=== PATIENT | male | born 1965 | race African-American/Black ===

== ENCOUNTER 2016-11-15 20:31 | Inpatient (IN) | payer MEDICAID ==
[~2016-11-15] VITALS: Ht 203.2 cm; Wt 77.1 kg
[~2016-11-15 20:31] MED LIST: ASPI-1079 PO; BACL20TA PO; DIPH25CA83 PO; Sodium Bicarbonate PO
[2016-11-15 22:08] LABS: BASOPHILS % 0.8 % (0.0-2.0); EOSINOPHILS % 1.1 % (0.0-5.0); HEMATOCRIT. 31.9 % (42.0-52.0); HEMOGLOBIN. 10.8 g/dL (14.0-18.0); LYMPHOCYTES % 16.2 % (20.0-50.0); MEAN CORPUSCULAR HEMOGLOBIN 26.9 pg (28.0-32.0); MEAN CORPUSCULAR VOLUME 79.4 fL (80.0-94.0); NEUTROPHILS % 74.9 % (40.0-76.0); PLATELET 269 x1000/uL (130-400); RED BLOOD CELL COUNT 4.02 mill/uL (4.7-6.1); RED CELL DISTRIBUTION WIDTH 13.9 % (11.6-14.6)
[2016-11-15 22:14] LABS: CHLORIDE 106 mEq/L (98-107)
[2016-11-15] MEDS ORDERED: VANCOMYCIN 1 G PREMIX 200 ML IV SCH (22:15)
[2016-11-15] MEDS ORDERED: MORPHINE SULFATE 4 MG/ML CPJ (NOT FOR IM USE) IV ONE (22:15)
[2016-11-15] MEDS ORDERED: ONDANSETRON HCL 4MG/2ML VIAL IV ONE (22:15)
[2016-11-15] MEDS ORDERED: SODIUM CHLORIDE 0.9% 1000ML BAG (SEPSIS BOLUS) IV ONE (22:15)
[2016-11-15] MEDS ORDERED: PIPERACILLIN/TAZ 3.375G PREMIX 50 ML IV ONE (22:15)
[2016-11-15 22:17] LABS: INR 1.2; PARTIAL THROMBOPLASTIN TIME 31.5 sec (23.4-31.0); PROTHROMBIN TIME 12.2 sec (9.4-11.6)
[2016-11-15 22:25] LABS: CARBON DIOXIDE 27 mEq/L (21-32); CREATINE KINASE 46 IU/L (39-308); CREATINE KINASE MB FRACTION < 0.5 ng/mL (0.5-3.6); TROPONIN I < 0.02 ng/mL (0.00-0.04)
[2016-11-15] MEDS ORDERED: POTASSIUM CHLORIDE 20MEQ/PACKET GT ONE (23:00)
[2016-11-16] MEDS ORDERED: POTASSIUM CHLORIDE 20MEQ TABLET SR PO SCH (00:30)
[2016-11-16] MEDS ORDERED: POTASSIUM CHLORIDE 20MEQ TABLET SR PO ONE (00:30)
[2016-11-16 03:10] VITALS: BP 111/87
[2016-11-16 04:00] VITALS: BP 114/77
[2016-11-16] MEDS ORDERED: MORPHINE SULFATE 4 MG/ML CPJ (NOT FOR IM USE) IV PRN (05:15)
[2016-11-16] MEDS ORDERED: VANCOMYCIN 1 G PREMIX 200 ML IV SCH ×2 (06:00)
[2016-11-16] MEDS ORDERED: DIPH25CA46 PO (06:09)
[2016-11-16] MEDS ORDERED: OMEP20CA10 PO (06:09)
[2016-11-16] MEDS ORDERED: MULT1TAB63 PO (06:09)
[2016-11-16] MEDS: SODIUM CHLORIDE 0.9% 1,000 ML IV SCH (06:39)
[2016-11-16 08:00] VITALS: BP 98/65
[2016-11-16] MEDS: PIPERACILLIN/TAZ 3.375G PREMIX 50 ML IV SCH ×3 (10:13→22:13)
[2016-11-16 10:31] LABS: HEMATOCRIT 31.8 % (42.0-52.0); HEMOGLOBIN 10.9 g/dL (14.0-18.0); MEAN CORPUSCULAR HEMOGLOBIN 27.4 pg (28.0-32.0); MEAN CORPUSCULAR VOLUME 80.3 fL (80.0-94.0); PLATELET 248 x1000/uL (130-400); RED BLOOD CELL COUNT 3.96 mill/uL (4.7-6.1); RED CELL DISTRIBUTION WIDTH 14.1 % (11.6-14.6)
[2016-11-16 11:10] LABS: CARBON DIOXIDE 26 mEq/L (21-32); CHLORIDE 107 mEq/L (98-107); HDL CHOLESTEROL 32 mg/dL (40-59); LDL CHOLESTEROL 71 mg/dL (5-100)
[2016-11-16 12:00] VITALS: BP 95/63
[2016-11-16] MEDS ORDERED: SODIUM HYPOCHLORITE 0.125% 473ML SOLUTION TOP PRN (15:00)
[2016-11-16 16:00] VITALS: BP 118/82
[2016-11-16] MEDS: CHOLECALCIFEROL (D3) 1000 UNIT TABLET PO SCH (16:00)
[2016-11-16 20:00] VITALS: BP 105/64
[2016-11-16] MEDS: VANCOMYCIN 1 G PREMIX 200 ML IV SCH (20:28)
[2016-11-17] VITALS: BP 108/74
[2016-11-17 04:00] VITALS: BP 101/67
[2016-11-17] MEDS: VANCOMYCIN 1 G PREMIX 200 ML IV SCH (05:06)
[2016-11-17 06:25] LABS: BASOPHILS % 0.7 % (0.0-2.0); EOSINOPHILS % 3.1 % (0.0-5.0); HEMOGLOBIN. 9.8 g/dL (14.0-18.0); LYMPHOCYTES % 17.2 % (20.0-50.0); MEAN CORPUSCULAR HEMOGLOBIN 27.5 pg (28.0-32.0); MEAN CORPUSCULAR VOLUME 78.8 fL (80.0-94.0); MEAN PLATELET VOLUME 8.3 fl (7.4-10.4); MONOCYTES % 7.5 % (2.0-8.0); NEUTROPHILS % 71.5 % (40.0-76.0); PLATELET 243 x1000/uL (130-400); RED BLOOD CELL COUNT 3.55 mill/uL (4.7-6.1); RED CELL DISTRIBUTION WIDTH 14.3 % (11.6-14.6)
[2016-11-17 06:52] LABS: CARBON DIOXIDE 27 mEq/L (21-32); CHLORIDE 107 mEq/L (98-107)
[2016-11-17] MEDS: PIPERACILLIN/TAZ 3.375G PREMIX 50 ML IV SCH (07:10)
[2016-11-17] MEDS: SODIUM CHLORIDE 0.9% 1,000 ML IV SCH ×2 (07:55→20:53)
[2016-11-17 08:00] VITALS: BP 101/67
[2016-11-17 08:08] LABS: CARBON DIOXIDE 25 mEq/L (21-32); CHLORIDE 107 mEq/L (98-107); VANCOMYCIN TROUGH 17.9 ug/mL (5.0-10.0)
[2016-11-17] MEDS: CHOLECALCIFEROL (D3) 1000 UNIT TABLET PO SCH (09:12)
[2016-11-17 12:00] VITALS: BP 110/78
[2016-11-17] MEDS: CLINDAMYCIN 600 MG in DEXTROSE 5% WATER 50 ML IV SCH (14:51)
[2016-11-17 16:00] VITALS: BP 95/64
[2016-11-17] MEDS ORDERED: VANCOMYCIN 1 G PREMIX 200 ML IV SCH (17:00)
[2016-11-17 20:00] VITALS: BP 104/66
[2016-11-18] VITALS: BP 108/73
[2016-11-18] MEDS: CLINDAMYCIN 600 MG in DEXTROSE 5% WATER 50 ML IV SCH ×3 (02:42→15:26)
[2016-11-18] MEDS: SODIUM CHLORIDE 0.9% 1,000 ML IV SCH (02:42)
[2016-11-18 04:00] VITALS: BP 101/68
[2016-11-18] MEDS ORDERED: BUPIVACAINE HCL 0.5% (5MG/ML) 50ML ONE (07:15)
[2016-11-18] MEDS ORDERED: NORMAL SALINE 0.9% 10 ML SYR ONE (07:15)
[2016-11-18] MEDS ORDERED: GENTAMICIN SULF 40MG/ML 2ML VIAL ONE (07:15)
[2016-11-18] MEDS ORDERED: BACITRACIN 50,000 UNITS/VIAL ONE (07:15)
[2016-11-18] MEDS ORDERED: FENTANYL CITRATE/PF 50MCG/ML 2ML VIAL ONE (07:34)
[2016-11-18] MEDS ORDERED: MIDAZOLAM HCL 2 MG/2 ML VIAL ONE (07:34)
[2016-11-18] MEDS ORDERED: LIDOCAINE HCL 1% 20ML VIAL (Pyxis) INJ ONE (07:54)
[2016-11-18] MEDS ORDERED: PROPOFOL 200MG/20ML VIAL IV ONE (07:54)
[2016-11-18] MEDS ORDERED: DEXAMETHASONE 4MG/ML 1ML VIAL ONE (07:54)
[2016-11-18] MEDS ORDERED: BACITRACIN ZINC 15GM TUBE TOP ONE (08:02)
[2016-11-18] MEDS ORDERED: ONDANSETRON HCL 4MG/2ML VIAL IV PRN (08:15)
[2016-11-18] MEDS ORDERED: LABETALOL HCL 20MG/4ML CARPUJECT IV PRN (08:15)
[2016-11-18] MEDS ORDERED: HYDROMORPHONE HCL/PF 2MG/ML CPJ IV PRN (08:15)
[2016-11-18] MEDS ORDERED: MEPERIDINE HCL/PF 25MG/ML CPJ IV PRN (08:15)
[2016-11-18 10:00] VITALS: BP 110/75
[2016-11-18] MEDS: CHOLECALCIFEROL (D3) 1000 UNIT TABLET PO SCH (10:20)
[2016-11-18 12:00] VITALS: BP 106/75
[2016-11-18 16:00] VITALS: BP 113/78
[2016-11-18] MEDS: IBUPROFEN 600MG TABLET PO PRN (18:07)
[2016-11-18 20:00] VITALS: BP 119/77
[2016-11-19] VITALS: BP 101/65
[2016-11-19] MEDS: SODIUM CHLORIDE 0.9% 1,000 ML IV SCH ×2 (01:21→15:58)
[2016-11-19] MEDS: IBUPROFEN 600MG TABLET PO PRN ×3 (01:45→20:42)
[2016-11-19] MEDS: CLINDAMYCIN 600 MG in DEXTROSE 5% WATER 50 ML IV SCH ×4 (03:05→23:43)
[2016-11-19 08:00] VITALS: BP 108/80
[2016-11-19] MEDS: CHOLECALCIFEROL (D3) 1000 UNIT TABLET PO SCH (09:49)
[2016-11-19] MEDS ORDERED: CLIN300C3 PO (11:47)
[2016-11-19] MEDS ORDERED: CHOL100022 PO (11:47)
[2016-11-19 12:00] VITALS: BP 106/70
[2016-11-19 16:00] VITALS: BP 114/68
[2016-11-19 20:00] VITALS: BP 104/76
[2016-11-20] VITALS: BP 103/55
[2016-11-20 04:00] VITALS: BP 119/64
[2016-11-20] MEDS: CLINDAMYCIN 600 MG in DEXTROSE 5% WATER 50 ML IV SCH ×3 (06:30→23:00)
[2016-11-20] MEDS: SODIUM CHLORIDE 0.9% 1,000 ML IV SCH (06:32)
[2016-11-20 08:00] VITALS: BP 103/72
[2016-11-20] MEDS: CHOLECALCIFEROL (D3) 1000 UNIT TABLET PO SCH (09:01)
[2016-11-20 12:00] VITALS: BP 100/65
[2016-11-20 16:00] VITALS: BP 113/76
[2016-11-20 20:00] VITALS: BP 115/72
[2016-11-21] VITALS (8 sets, daily range): BP systolic 110–130; BP diastolic 67–88
[2016-11-21] MEDS: SODIUM CHLORIDE 0.9% 1,000 ML IV SCH ×2 (05:15→18:16)
[2016-11-21 06:55] LABS: HEMATOCRIT 29.5 % (42.0-52.0); HEMOGLOBIN 10.2 g/dL (14.0-18.0); MEAN CORPUSCULAR HEMOGLOBIN 27.4 pg (28.0-32.0); MEAN CORPUSCULAR VOLUME 79.4 fL (80.0-94.0); PLATELET 253 x1000/uL (130-400); RED BLOOD CELL COUNT 3.71 mill/uL (4.7-6.1)
[2016-11-21] MEDS: CLINDAMYCIN 600 MG in DEXTROSE 5% WATER 50 ML IV SCH ×2 (07:00→15:00)
[2016-11-21 07:17] LABS: CARBON DIOXIDE 24 mEq/L (21-32); CHLORIDE 108 mEq/L (98-107)
[2016-11-21] MEDS: CHOLECALCIFEROL (D3) 1000 UNIT TABLET PO SCH (08:01)
[2016-11-21] MEDS: IBUPROFEN 600MG TABLET PO PRN (15:54)
== END 2016-11-21 22:00 | disposition home health service (06) | DRG 364 ==
LOC: ER 20:51 → 6EST 23:01 → ENRESERV 23:12
PROVIDERS: ADMIT Internal Medicine; ATTEND Internal Medicine
PROC: 0KBF0ZZ Excision of Right Trunk Muscle, Open Approach (ICD-10-PCS; 2016-11-18)
PROC: 0KBG0ZZ Excision of Left Trunk Muscle, Open Approach (ICD-10-PCS; principal; 2016-11-18 07:30)
DX: L89.104 Pressure ulcer of unspecified part of back, stage 4 (principal); E43 Unspecified severe protein-calorie malnutrition; G35 Multiple sclerosis; E86.0 Dehydration; D64.9 Anemia, unspecified; G89.29 Other chronic pain; Z74.01 Bed confinement status; Z79.899 Other long term (current) drug therapy; Z91.14 Patient's other noncompliance with medication regimen; Z68.1 Body mass index [BMI] 19.9 or less, adult; Z79.82 Long term (current) use of aspirin
CPT/HCPCS: 36415; 80048; 80053; 80061; 80202; 82550; 82553; 83605; 83690; 83880; 84443; 84484; 85025; 85027; 85610; 85730; 87040; 88304; 92610; 93005; 97162; 97166; 99285; A4216; J1100; J1580; J2250; J2270; J2405; J2543; J2704; J3010; J3370; J3490; J7030; J7060

== ENCOUNTER 2019-03-19 10:50 | Inpatient (IN) | payer MEDICAID, MEDICARE ==
[~2019-03-19] VITALS: Ht 175.3 cm; Wt 59.0 kg
[~2019-03-19 10:50] MED LIST changes: +ASCO500C15 PO; +BISA-81 PO; +CLIN300C3 PO; +CLON0.1T PO; +DIPH25CA46 PO; +DOCU-138 PO; +GABA-531 PO; +HYDR2TAB4 PO; +IPRA3AMP9 HHN; +LEVO500T2 PO; +MAG-55 PO; +MULT-1146 PO; +NA P230E RC; +OMEP20CA14 PO; +SENN-170 PO; -Sodium Bicarbonate PO; +TOPUD PO; +TRAM50TA3 PO
[2019-03-19 11:22] LABS: HEMATOCRIT. 36.7 % (42.0-52.0); HEMOGLOBIN. 12.3 g/dL (14.0-18.0); MEAN CORPUSCULAR HEMOGLOBIN 25.7 pg (28.0-32.0); MEAN CORPUSCULAR VOLUME 76.5 fL (80.0-94.0); MEAN PLATELET VOLUME 9.3 fl (7.4-10.4); PLATELET 192 x1000/uL (130-400); RED BLOOD CELL COUNT 4.79 mill/uL (4.7-6.1); RED CELL DISTRIBUTION WIDTH 17.7 % (11.6-14.6)
[2019-03-19 11:30] LABS: CHLORIDE 108 mEq/L (98-107)
[2019-03-19] MEDS ORDERED: SODIUM CHLORIDE 0.9% 1,000 ML IV ONE (11:30)
[2019-03-19 11:34] LABS: ETHANOL BLOOD < 10 mg/dL
[2019-03-19 12:06] LABS: PLATELET ESTIMATE NORMAL
[2019-03-19 13:11] LABS: CLARITY URINE TURBID (CLEAR); COLOR URINE YELLOW (YELLOW); KETONES URINE NEGATIVE (NEGATIVE); LEUKOCYTE ESTERASE URINE 3+ (NEGATIVE); NITRITE URINE POSITIVE (NEGATIVE); OCCULT BLOOD URINE 2+ (NEGATIVE); PROTEIN URINE 1+ (NEGATIVE); SPECIFIC GRAVITY URINE 1.017 (1.005-1.030)
[2019-03-19 13:29] LABS: *COCAINE SCREEN URINE NEGATIVE (NEGATIVE); METHADONE URINE SCREEN NEGATIVE (NEGATIVE); OPIATES URINE SCREEN PRESUMTIVE POSITIVE (NEGATIVE); PHENCYCLIDINE URINE SCREEN NEGATIVE (NEGATIVE)
[2019-03-19 13:30] LABS: *AMPHETAMINES SCREEN URINE NEGATIVE (NEGATIVE); *BARBITURATES SCREEN URINE NEGATIVE (NEGATIVE); *BENZODIAZEPINES SCREEN URINE NEGATIVE (NEGATIVE); CANNABINOID URINE SCREEN NEGATIVE (NEGATIVE)
[2019-03-19] MEDS ORDERED: CEFTRIAXONE 1 G PREMIX 50 ML IV ONE (13:45)
[2019-03-19 16:00] VITALS: BP 95/55
[2019-03-19] MEDS ORDERED: GABA-533 GT (17:15)
[2019-03-19] MEDS ORDERED: ONDA4TAB5 GT (17:24)
[2019-03-19] MEDS ORDERED: HYDR-3281 GT (17:24)
[2019-03-19] MEDS ORDERED: CRAN1CAP10 GT (17:24)
[2019-03-19] MEDS ORDERED: ACETAMINOPHEN 650MG/20.3ML UDC GT PRN (19:00)
[2019-03-19 20:00] VITALS: BP 100/55
[2019-03-19] MEDS ORDERED: MEROPENEM 1,000 MG in SODIUM CHLORIDE 0.9% 100 ML IV NR (20:00)
[2019-03-19] MEDS: ENOXAPARIN 40MG/0.4ML SYR SUBCUT SCH (21:15)
[2019-03-19] MEDS: DEXT 5%/0.45% NACL 1000ML 1,000 ML IV SCH (21:15)
[2019-03-20] VITALS: BP 102/58
[2019-03-20 04:00] VITALS: BP 100/52
[2019-03-20] MEDS: DEXT 5%/0.45% NACL 1000ML 1,000 ML IV SCH ×2 (05:41→15:28)
[2019-03-20 06:43] LABS: HEMATOCRIT. 32.2 % (42.0-52.0); HEMOGLOBIN. 11.1 g/dL (14.0-18.0); MEAN CORPUSCULAR HEMOGLOBIN 26.4 pg (28.0-32.0); MEAN CORPUSCULAR VOLUME 76.5 fL (80.0-94.0); MEAN PLATELET VOLUME 9.9 fl (7.4-10.4); PLATELET 164 x1000/uL (130-400); RED BLOOD CELL COUNT 4.21 mill/uL (4.7-6.1); RED CELL DISTRIBUTION WIDTH 17.7 % (11.6-14.6)
[2019-03-20 06:59] LABS: CHLORIDE 111 mEq/L (98-107)
[2019-03-20 07:05] LABS: PHOSPHORUS 1.9 mg/dL (2.5-4.9)
[2019-03-20 08:00] VITALS: BP 114/63
[2019-03-20] MEDS: MEROPENEM 1,000 MG in SODIUM CHLORIDE 0.9% 100 ML IV SCH ×2 (08:56→20:46)
[2019-03-20] MEDS: FAMOTIDINE 20MG/2ML VIAL IV SCH ×2 (08:56→20:45)
[2019-03-20] MEDS: ENOXAPARIN 40MG/0.4ML SYR SUBCUT SCH (08:57)
[2019-03-20 12:00] VITALS: BP 122/68
[2019-03-20] MEDS ORDERED: POTASSIUM CHLORIDE 20MEQ/PACKET GT NR (14:30)
[2019-03-20] MEDS ORDERED: POTASSIUM PHOS,M-BASIC-D-BASIC 30 MMOL in DEXT 5% WATER 500 ML IV NR (15:30)
[2019-03-20 16:00] VITALS: BP 124/70
[2019-03-20 18:12] LABS: PLATELET ESTIMATE NORMAL
[2019-03-20 20:00] VITALS: BP 122/74
[2019-03-21] VITALS: BP 127/79
[2019-03-21 04:00] VITALS: BP 128/84
[2019-03-21] MEDS: DEXT 5%/0.45% NACL 1000ML 1,000 ML IV SCH ×3 (04:06→20:30)
[2019-03-21 07:42] LABS: BASOPHILS % 0.4 % (0.0-2.0); EOSINOPHILS % 0.4 % (0.0-5.0); HEMATOCRIT. 33.8 % (42.0-52.0); HEMOGLOBIN. 11.5 g/dL (14.0-18.0); MEAN CORPUSCULAR VOLUME 76.2 fL (80.0-94.0); MEAN PLATELET VOLUME 9.8 fl (7.4-10.4); NEUTROPHILS % 81.2 % (40.0-76.0); PLATELET 179 x1000/uL (130-400); RED BLOOD CELL COUNT 4.43 mill/uL (4.7-6.1); RED CELL DISTRIBUTION WIDTH 17.1 % (11.6-14.6)
[2019-03-21 08:00] VITALS: BP 125/70
[2019-03-21 08:17] LABS: CHLORIDE 110 mEq/L (98-107)
[2019-03-21 08:23] LABS: PHOSPHORUS 2.3 mg/dL (2.5-4.9)
[2019-03-21] MEDS: MEROPENEM 1,000 MG in SODIUM CHLORIDE 0.9% 100 ML IV SCH ×2 (08:51→22:23)
[2019-03-21] MEDS: FAMOTIDINE 20MG/2ML VIAL IV SCH ×2 (08:51→20:29)
[2019-03-21] MEDS: ENOXAPARIN 40MG/0.4ML SYR SUBCUT SCH (08:52)
[2019-03-21] MEDS ORDERED: POTASSIUM CHLORIDE 20MEQ/PACKET GT NR (09:00)
[2019-03-21] MEDS ORDERED: POTASSIUM PHOS,M-BASIC-D-BASIC 20 MMOL in DEXT 5% WATER 243.3333 ML IV NR (10:30)
[2019-03-21 12:00] VITALS: BP 119/78
[2019-03-21 16:00] VITALS: BP_SYST 127; BP_SYST 175; BP_DIAS 75
[2019-03-21 20:00] VITALS: BP 123/65
[2019-03-22] VITALS: BP 120/84
[2019-03-22 04:00] VITALS: BP 117/73
[2019-03-22] MEDS: DEXT 5%/0.45% NACL 1000ML 1,000 ML IV SCH (06:10)
[2019-03-22 06:36] LABS: BASOPHILS % 0.4 % (0.0-2.0); EOSINOPHILS % 1.5 % (0.0-5.0); HEMATOCRIT. 32.2 % (42.0-52.0); HEMOGLOBIN. 11.4 g/dL (14.0-18.0); LYMPHOCYTES % 16.9 % (20.0-50.0); MEAN CORPUSCULAR HEMOGLOBIN 26.7 pg (28.0-32.0); MEAN CORPUSCULAR VOLUME 75.8 fL (80.0-94.0); MEAN PLATELET VOLUME 9.6 fl (7.4-10.4); MONOCYTES % 8.9 % (2.0-8.0); NEUTROPHILS % 72.3 % (40.0-76.0); PLATELET 192 x1000/uL (130-400); RED BLOOD CELL COUNT 4.26 mill/uL (4.7-6.1); RED CELL DISTRIBUTION WIDTH 17.4 % (11.6-14.6)
[2019-03-22 08:00] VITALS: BP 129/86
[2019-03-22] MEDS: MEROPENEM 1,000 MG in SODIUM CHLORIDE 0.9% 100 ML IV SCH (09:18)
[2019-03-22] MEDS: FAMOTIDINE 20MG/2ML VIAL IV SCH (09:18)
[2019-03-22] MEDS: ENOXAPARIN 40MG/0.4ML SYR SUBCUT SCH (09:19)
[2019-03-22 12:00] VITALS: BP 131/81
[2019-03-22 16:00] VITALS: BP 127/75
[2019-03-22 19:05] VITALS: BP 127/75
[2019-03-22] MEDS ORDERED: SULFAMETHOXAZOLE/TRIMETHOPRIM 800/160MG TABLET GT SCH (21:00)
[2019-04-23] MEDS ORDERED: CEPH750C9 MT (17:14)
== END 2019-03-22 20:11 | DRG 720 ==
LOC: ER 10:50 → 5WST 14:00 → EDBEDREQ 14:23 → EDBEDREQSVC 14:23 → ENRESERV 14:44 → 5WST 17:14
PROVIDERS: ADMIT Internal Medicine; ATTEND Internal Medicine
DX: A41.50 Gram-negative sepsis, unspecified (principal); G93.41 Metabolic encephalopathy; L89.894 Pressure ulcer of other site, stage 4; I11.0 Hypertensive heart disease with heart failure; I50.9 Heart failure, unspecified; E83.39 Other disorders of phosphorus metabolism; E83.51 Hypocalcemia; E87.6 Hypokalemia; G35 Multiple sclerosis; N39.0 Urinary tract infection, site not specified; B96.89 Other specified bacterial agents as the cause of diseases classified elsewhere; M24.50 Contracture, unspecified joint; K21.9 Gastro-esophageal reflux disease without esophagitis; D64.9 Anemia, unspecified; N31.9 Neuromuscular dysfunction of bladder, unspecified; Z22.322 Carrier or suspected carrier of Methicillin resistant Staphylococcus aureus; Z93.1 Gastrostomy status; Z79.82 Long term (current) use of aspirin; Z79.899 Other long term (current) drug therapy
CPT/HCPCS: 36415; 71045; 80048; 80053; 80305; 80320; 81003; 83605; 83735; 84100; 84134; 85025; 87077; 87186; 93005; 99285; J0696; J1650; J2185; J3490; J7030; J7050; J7060; G0480

== ENCOUNTER 2020-04-14 10:07 | Inpatient (IN) | payer MEDICAID ==
[~2020-04-14] VITALS: Ht 182.9 cm; Wt 50.3 kg
[~2020-04-14 10:07] MED LIST changes: -ASPI-1079 PO; -BACL20TA PO; -BISA-81 PO; -CLIN300C3 PO; -CLON0.1T PO; -DIPH25CA46 PO; -DIPH25CA83 PO; -DOCU-138 PO; -GABA-531 PO; -HYDR2TAB4 PO; -IPRA3AMP9 HHN; -LEVO500T2 PO; -MAG-55 PO; -NA P230E RC; -SENN-170 PO; -TOPUD PO; -TRAM50TA3 PO
[2020-04-14] MEDS ORDERED: SODIUM CHLORIDE 0.9% 1,000 ML IV ONE (11:30)
[2020-04-14 12:02] LABS: HEMATOCRIT. 29.1 % (42.0-52.0); HEMOGLOBIN. 9.8 g/dL (14.0-18.0); MEAN CORPUSCULAR HEMOGLOBIN 23.2 pg (28.0-32.0); MEAN CORPUSCULAR VOLUME 69.1 fL (80.0-94.0); PLATELET 490 x1000/uL (130-400); RED BLOOD CELL COUNT 4.21 mill/uL (4.7-6.1); RED CELL DISTRIBUTION WIDTH 20.8 % (11.6-14.6)
[2020-04-14 12:05] LABS: CHLORIDE 97 mEq/L (98-107)
[2020-04-14 12:09] LABS: INR 1.2; PROTHROMBIN TIME 12.3 sec (9.6-11.0)
[2020-04-14 12:21] LABS: PLATELET ESTIMATE INCREASED
[2020-04-14] MEDS ORDERED: VANCOMYCIN 1 G PREMIX 200 ML IV NR (12:30)
[2020-04-14] MEDS ORDERED: PIPERACILLIN/TAZOBACTAM 3.375GM/50ML PREMIX IV ONE (12:30)
[2020-04-14] MEDS: PIPERACILLIN/TAZ 3.375G PREMIX 50 ML IV NR ×2 (12:41→13:18)
[2020-04-14] MEDS ORDERED: ASPIRIN 325MG EC TABLET PO ONE (12:45)
[2020-04-14] MEDS ORDERED: ASPIRIN 81MG TABLET PO ONE (13:30)
[2020-04-14] MEDS ORDERED: ONDANSETRON HCL 4MG/2ML INJ IV PRN (16:30)
[2020-04-14] MEDS ORDERED: TRAZODONE HCL 50MG TABLET PO PRN (16:30)
[2020-04-14] MEDS ORDERED: CEFTRIAXONE 1 G PREMIX 50 ML IV SCH (17:00)
[2020-04-14 17:41] VITALS: BP 102/67
[2020-04-14 17:48] VITALS: BP 104/67
[2020-04-14] MEDS ORDERED: ZINC220T4 MT (18:51)
[2020-04-14] MEDS ORDERED: FE300LUD MT (18:51)
[2020-04-14] MEDS ORDERED: TOPUD GT (18:51)
[2020-04-14] MEDS ORDERED: MULT-230 MT (18:51)
[2020-04-14] MEDS ORDERED: FAMO20TA8 MT (18:51)
[2020-04-14] MEDS ORDERED: DOCU250C14 GT (18:51)
[2020-04-14] MEDS ORDERED: ASCO500C18 PO (18:51)
[2020-04-14] MEDS ORDERED: ALBU05 NEB (18:51)
[2020-04-14] MEDS ORDERED: ONDA4TAB5 MT (18:51)
[2020-04-14] MEDS ORDERED: GABA-533 MT (18:51)
[2020-04-14] MEDS ORDERED: LOV40 SQ (18:51)
[2020-04-14 20:00] VITALS: BP 100/63
[2020-04-14] MEDS ORDERED: CEFTRIAXONE 1,000 MG in DEXTROSE 5% WATER 50 ML IV SCH (20:00)
[2020-04-14] MEDS: AZITHROMYCIN 500 MG in DEXT 5% WATER 250 ML IV SCH (20:12)
[2020-04-14] MEDS: HEPARIN 5000 UNITS/ML VIAL SUBCUT SCH (20:18)
[2020-04-15] VITALS (7 sets, daily range): BP systolic 100–129; BP diastolic 63–88
[2020-04-15] MEDS: HEPARIN 5000 UNITS/ML VIAL SUBCUT SCH (08:36)
[2020-04-15 09:12] LABS: HEMATOCRIT. 25.7 % (42.0-52.0); HEMOGLOBIN. 8.5 g/dL (14.0-18.0); MEAN CORPUSCULAR HEMOGLOBIN 22.7 pg (28.0-32.0); MEAN CORPUSCULAR VOLUME 68.2 fL (80.0-94.0); PLATELET 431 x1000/uL (130-400); RED BLOOD CELL COUNT 3.77 mill/uL (4.7-6.1); RED CELL DISTRIBUTION WIDTH 21.6 % (11.6-14.6)
[2020-04-15 09:23] LABS: CHLORIDE 99 mEq/L (98-107)
[2020-04-15] MEDS: CEFEPIME 1,000 MG in DEXTROSE 5% WATER 50 ML IV SCH (16:31)
[2020-04-15 17:00] LABS: CLARITY URINE TURBID (CLEAR); COLOR URINE DARK YELLOW (YELLOW); KETONES URINE NEGATIVE (NEGATIVE); LEUKOCYTE ESTERASE URINE 3+ (NEGATIVE); NITRITE URINE POSITIVE (NEGATIVE); OCCULT BLOOD URINE 2+ (NEGATIVE); PH URINE 7.5 (4.5-8.0); PROTEIN URINE 1+ (NEGATIVE); SPECIFIC GRAVITY URINE 1.025 (1.005-1.030)
[2020-04-15] MEDS: AZITHROMYCIN 500 MG in DEXT 5% WATER 250 ML IV SCH (22:19)
[2020-04-15 23:15] LABS: PLATELET ESTIMATE INCREASED
[2020-04-16 00:48] VITALS: BP 105/69
[2020-04-16] MEDS: CEFEPIME 1,000 MG in DEXTROSE 5% WATER 50 ML IV SCH ×2 (04:02→16:26)
[2020-04-16] MEDS: ACETAMINOPHEN 325MG TABLET PO PRN ×2 (04:03→20:21)
[2020-04-16 08:00] VITALS: BP 103/68
[2020-04-16] MEDS: ASCORBIC ACID 500 MG TABLET PO SCH (09:34)
[2020-04-16] MEDS: ZINC SULFATE 220 MG ( 50 ) CAPSULE PO SCH (09:34)
[2020-04-16 09:54] LABS: HEMATOCRIT. 25.9 % (42.0-52.0); HEMOGLOBIN. 8.5 g/dL (14.0-18.0); MEAN CORPUSCULAR HEMOGLOBIN 22.6 pg (28.0-32.0); MEAN PLATELET VOLUME 8.2 fl (7.4-10.4); PLATELET 393 x1000/uL (130-400); RED BLOOD CELL COUNT 3.75 mill/uL (4.7-6.1); RED CELL DISTRIBUTION WIDTH 21.2 % (11.6-14.6)
[2020-04-16 10:06] LABS: CHLORIDE 100 mEq/L (98-107)
[2020-04-16 11:15] LABS: PLATELET ESTIMATE NORMAL
[2020-04-16 12:00] VITALS: BP 103/69
[2020-04-16] MEDS: AZITHROMYCIN 500 MG in DEXT 5% WATER 250 ML IV SCH (12:35)
[2020-04-16 16:00] VITALS: BP 102/65
[2020-04-16 20:00] VITALS: BP 121/74
[2020-04-16] MEDS: METOPROLOL TARTRATE 25MG TABLET PO SCH (20:21)
[2020-04-17] VITALS: BP 127/75
[2020-04-17 04:00] VITALS: BP 123/72
[2020-04-17] MEDS: ACETAMINOPHEN 325MG TABLET PO PRN ×2 (04:59→12:13)
[2020-04-17] MEDS: CEFEPIME 1,000 MG in DEXTROSE 5% WATER 50 ML IV SCH (04:59)
[2020-04-17 08:00] VITALS: BP 89/48
[2020-04-17 08:04] LABS: BASOPHILS % 0.8 % (0.0-2.0); EOSINOPHILS % 0.7 % (0.0-5.0); HEMATOCRIT. 25.4 % (42.0-52.0); HEMOGLOBIN. 8.5 g/dL (14.0-18.0); LYMPHOCYTES % 7.1 % (20.0-50.0); MEAN CORPUSCULAR HEMOGLOBIN 22.9 pg (28.0-32.0); MEAN CORPUSCULAR VOLUME 68.8 fL (80.0-94.0); MEAN PLATELET VOLUME 8.2 fl (7.4-10.4); MONOCYTES % 11.2 % (2.0-8.0); NEUTROPHILS % 80.2 % (40.0-76.0); PLATELET 361 x1000/uL (130-400); RED CELL DISTRIBUTION WIDTH 21.6 % (11.6-14.6)
[2020-04-17 08:23] LABS: CHLORIDE 99 mEq/L (98-107)
[2020-04-17] MEDS: METOPROLOL TARTRATE 25MG TABLET PO SCH ×2 (09:00→20:14)
[2020-04-17] MEDS: ZINC SULFATE 220 MG ( 50 ) CAPSULE PO SCH (09:03)
[2020-04-17] MEDS: ASCORBIC ACID 500 MG TABLET PO SCH (09:03)
[2020-04-17] MEDS ORDERED: KCL 20MEQ/100ML PREMIX 100 ML IV SCH (10:30)
[2020-04-17 12:00] VITALS: BP 92/62
[2020-04-17] MEDS: AZITHROMYCIN 500 MG in DEXT 5% WATER 250 ML IV SCH (12:14)
[2020-04-17] MEDS ORDERED: SODIUM CHLORIDE 0.9% 1000ML BAG (SEPSIS BOLUS) IV ONE (13:30)
[2020-04-17] MEDS ORDERED: SODIUM CHLORIDE 0.9% 500 ML IV ONE (14:00)
[2020-04-17] MEDS: MIDODRINE HCL 5MG TABLET PO SCH ×2 (14:08→20:14)
[2020-04-17 16:00] VITALS: BP 84/55
[2020-04-17] MEDS: PIPERACILLIN/TAZOBACTAM 3.375 G in DEXT 5% WATER 100 ML IV SCH ×2 (16:43→23:38)
[2020-04-17 20:00] VITALS: BP 110/65
[2020-04-18] VITALS: BP 110/65
[2020-04-18 04:00] VITALS: BP 142/89
[2020-04-18] MEDS: MIDODRINE HCL 5MG TABLET PO SCH ×3 (04:59→21:27)
[2020-04-18] MEDS: PIPERACILLIN/TAZOBACTAM 3.375 G in DEXT 5% WATER 100 ML IV SCH ×3 (04:59→17:14)
[2020-04-18 05:30] VITALS: BP 130/70
[2020-04-18 07:27] LABS: BASOPHILS % 0.3 % (0.0-2.0); EOSINOPHILS % 0.6 % (0.0-5.0); HEMATOCRIT. 23.4 % (42.0-52.0); HEMOGLOBIN. 7.7 g/dL (14.0-18.0); LYMPHOCYTES % 9.4 % (20.0-50.0); MEAN CORPUSCULAR HEMOGLOBIN 22.8 pg (28.0-32.0); MEAN CORPUSCULAR VOLUME 69.2 fL (80.0-94.0); MEAN PLATELET VOLUME 8.5 fl (7.4-10.4); MONOCYTES % 11.8 % (2.0-8.0); NEUTROPHILS % 77.9 % (40.0-76.0); PLATELET 325 x1000/uL (130-400); RED BLOOD CELL COUNT 3.38 mill/uL (4.7-6.1); RED CELL DISTRIBUTION WIDTH 21.6 % (11.6-14.6)
[2020-04-18 07:28] LABS: CHLORIDE 104 mEq/L (98-107)
[2020-04-18 08:00] VITALS: BP 95/62
[2020-04-18] MEDS: METOPROLOL TARTRATE 25MG TABLET PO SCH ×2 (09:00→21:00)
[2020-04-18] MEDS: ZINC SULFATE 220 MG ( 50 ) CAPSULE PO SCH (09:32)
[2020-04-18] MEDS: ASCORBIC ACID 500 MG TABLET PO SCH (09:32)
[2020-04-18] MEDS: ACETAMINOPHEN 325MG TABLET PO PRN (09:33)
[2020-04-18 12:00] VITALS: BP 95/59
[2020-04-18] MEDS: AZITHROMYCIN 500 MG in DEXT 5% WATER 250 ML IV SCH (14:57)
[2020-04-18 16:00] VITALS: BP 92/63
[2020-04-19] MEDS: PIPERACILLIN/TAZOBACTAM 3.375 G in DEXT 5% WATER 100 ML IV SCH ×5 (00:12→23:30)
[2020-04-19] MEDS: MIDODRINE HCL 5MG TABLET PO SCH ×3 (05:28→21:10)
[2020-04-19 07:12] LABS: BASOPHILS % 0.6 % (0.0-2.0); EOSINOPHILS % 0.6 % (0.0-5.0); HEMATOCRIT. 25.3 % (42.0-52.0); HEMOGLOBIN. 8.4 g/dL (14.0-18.0); LYMPHOCYTES % 7.3 % (20.0-50.0); MEAN CORPUSCULAR HEMOGLOBIN 22.5 pg (28.0-32.0); MEAN PLATELET VOLUME 8.4 fl (7.4-10.4); MONOCYTES % 10.3 % (2.0-8.0); NEUTROPHILS % 81.2 % (40.0-76.0); PLATELET 349 x1000/uL (130-400); RED BLOOD CELL COUNT 3.71 mill/uL (4.7-6.1); RED CELL DISTRIBUTION WIDTH 21.4 % (11.6-14.6)
[2020-04-19 07:59] LABS: CHLORIDE 97 mEq/L (98-107)
[2020-04-19 08:00] VITALS: BP 103/66
[2020-04-19] MEDS: METOPROLOL TARTRATE 25MG TABLET PO SCH ×2 (09:00→20:33)
[2020-04-19] MEDS: ZINC SULFATE 220 MG ( 50 ) CAPSULE PO SCH (09:06)
[2020-04-19] MEDS: ASCORBIC ACID 500 MG TABLET PO SCH (09:06)
[2020-04-19] MEDS: AZITHROMYCIN 500 MG in DEXT 5% WATER 250 ML IV SCH (11:32)
[2020-04-19 12:00] VITALS: BP 140/82
[2020-04-19 16:00] VITALS: BP 97/66
[2020-04-19 20:00] VITALS: BP 108/69
[2020-04-19] MEDS: ACETAMINOPHEN 325MG TABLET PO PRN (21:11)
[2020-04-20] VITALS: BP 115/70
[2020-04-20 04:00] VITALS: BP 105/60
[2020-04-20] MEDS: PIPERACILLIN/TAZOBACTAM 3.375 G in DEXT 5% WATER 100 ML IV SCH ×2 (05:05→12:20)
[2020-04-20] MEDS: MIDODRINE HCL 5MG TABLET PO SCH ×2 (05:14→15:17)
[2020-04-20] MEDS ORDERED: LIDOCAINE HCL 1% 20ML VIAL (Pyxis) INJ ONE (07:55)
[2020-04-20 08:00] VITALS: BP 95/62
[2020-04-20] MEDS: METOPROLOL TARTRATE 25MG TABLET PO SCH (09:00)
[2020-04-20] MEDS: ZINC SULFATE 220 MG ( 50 ) CAPSULE PO SCH (10:11)
[2020-04-20] MEDS: ASCORBIC ACID 500 MG TABLET PO SCH (10:11)
[2020-04-20 12:00] VITALS: BP 110/60
[2020-04-20 14:53] VITALS: BP 98/63
== END 2020-04-20 16:15 | DRG 720 ==
LOC: ER 10:19 → 7WST 14:23 → EDBEDREQ 14:26 → EDBEDREQSVC 14:52 → ENRESERV 15:09 → CANRESERV 15:09 → ENRESERV 16:09 → 8WST 04-15 00:20
PROVIDERS: ADMIT Family Medicine Adult Medicine; ATTEND Family Medicine Adult Medicine
DX: A41.50 Gram-negative sepsis, unspecified (principal); G82.50 Quadriplegia, unspecified; J90 Pleural effusion, not elsewhere classified; E43 Unspecified severe protein-calorie malnutrition; D64.9 Anemia, unspecified; E87.1 Hypo-osmolality and hyponatremia; E87.8 Other disorders of electrolyte and fluid balance, not elsewhere classified; E78.5 Hyperlipidemia, unspecified; I10 Essential (primary) hypertension; I27.20 Pulmonary hypertension, unspecified; J18.9 Pneumonia, unspecified organism; J45.909 Unspecified asthma, uncomplicated; N39.0 Urinary tract infection, site not specified; R13.10 Dysphagia, unspecified; F20.9 Schizophrenia, unspecified; Z20.822 Contact with and (suspected) exposure to COVID-19; Z86.16 Personal history of COVID-19; E78.00 Pure hypercholesterolemia, unspecified; F99 Mental disorder, not otherwise specified; L89.894 Pressure ulcer of other site, stage 4; Z93.1 Gastrostomy status; Z87.440 Personal history of urinary (tract) infections; Z79.1 Long term (current) use of non-steroidal anti-inflammatories (NSAID); Z68.1 Body mass index [BMI] 19.9 or less, adult; Z79.899 Other long term (current) drug therapy
CPT/HCPCS: 36415; 71045; 80053; 81003; 83605; 83735; 84134; 84145; 84484; 85025; 87077; 87186; 93005; 93306; 96365; 99291; J0456; J0692; J0696; J1644; J2543; J3370; J3480; J3490; J7030; J7040; J7060; U0003; A4315

== ENCOUNTER 2020-04-22 10:49 | Inpatient (IN) | payer MEDICAID ==
[2020-04-22] VITALS: BP 106/63
[~2020-04-22] VITALS: Ht 172.7 cm; Wt 47.2 kg
[~2020-04-22 10:49] MED LIST changes: +ALBU05 NEB; +ASCO500C18 PO; +DOCU250C14 GT; +FAMO20TA8 MT; +FE300LUD MT; +GABA-533 MT; +LOV40 SQ; +MULT-230 MT; +ONDA4TAB5 MT; +TOPUD GT; +ZINC220T4 MT
[2020-04-22] MEDS ORDERED: SODIUM CHLORIDE 0.9% 1000ML BAG (SEPSIS BOLUS) IV ONE (11:15)
[2020-04-22 12:19] LABS: BASOPHILS % 0.5 % (0.0-2.0); EOSINOPHILS % 0.5 % (0.0-5.0); HEMATOCRIT. 26.4 % (42.0-52.0); HEMOGLOBIN. 8.5 g/dL (14.0-18.0); LYMPHOCYTES % 10.4 % (20.0-50.0); MEAN CORPUSCULAR HEMOGLOBIN 22.2 pg (28.0-32.0); MEAN CORPUSCULAR VOLUME 68.9 fL (80.0-94.0); MEAN PLATELET VOLUME 8.3 fl (7.4-10.4); MONOCYTES % 10.4 % (2.0-8.0); NEUTROPHILS % 78.2 % (40.0-76.0); PLATELET 328 x1000/uL (130-400); RED BLOOD CELL COUNT 3.83 mill/uL (4.7-6.1); RED CELL DISTRIBUTION WIDTH 21.1 % (11.6-14.6)
[2020-04-22 12:25] LABS: CHLORIDE 100 mEq/L (98-107)
[2020-04-22 12:35] LABS: CREATINE KINASE 24 IU/L (39-308)
[2020-04-22 12:36] LABS: INR 1.2; PROTHROMBIN TIME 12.5 sec (9.6-11.0)
[2020-04-22 12:40] LABS: CLARITY URINE CLEAR (CLEAR); COLOR URINE YELLOW (YELLOW); KETONES URINE NEGATIVE (NEGATIVE); LEUKOCYTE ESTERASE URINE TRACE (NEGATIVE); NITRITE URINE NEGATIVE (NEGATIVE); OCCULT BLOOD URINE NEGATIVE (NEGATIVE); PH URINE 7.5 (4.5-8.0); PROTEIN URINE NEGATIVE (NEGATIVE); SPECIFIC GRAVITY URINE 1.006 (1.005-1.030); UROBILINOGEN URINE 0.2 E.U./dL (0.2-1.0)
[2020-04-22 12:58] LABS: PLATELET ESTIMATE NORMAL
[2020-04-22 13:04] LABS: *COCAINE SCREEN URINE NEGATIVE (NEGATIVE); CANNABINOID URINE SCREEN NEGATIVE (NEGATIVE); METHADONE URINE SCREEN NEGATIVE (NEGATIVE); OPIATES URINE SCREEN NEGATIVE (NEGATIVE); PHENCYCLIDINE URINE SCREEN NEGATIVE (NEGATIVE)
[2020-04-22 13:05] LABS: *AMPHETAMINES SCREEN URINE NEGATIVE (NEGATIVE); *BARBITURATES SCREEN URINE NEGATIVE (NEGATIVE)
[2020-04-22 13:06] LABS: *BENZODIAZEPINES SCREEN URINE NEGATIVE (NEGATIVE)
[2020-04-22] MEDS ORDERED: CEFTRIAXONE 1 G PREMIX 50 ML IV ONE (13:30)
[2020-04-22] MEDS ORDERED: LEVOFLOXACIN 500MG PREMIX 100 ML IV ONE (13:30)
[2020-04-22] MEDS ORDERED: ACETAMINOPHEN 650MG/20.3ML UDC GT PRN (17:15)
[2020-04-22] MEDS ORDERED: DIPHENHYDRAMINE 50MG/ML VIAL IV PRN (17:15)
[2020-04-22] MEDS ORDERED: ONDANSETRON HCL 4MG/2ML INJ IV PRN (17:15)
[2020-04-22] MEDS ORDERED: CLONIDINE 0.1MG TABLET PO PRN (17:15)
[2020-04-22] MEDS: SODIUM CHLORIDE 0.9% 1,000 ML IV SCH (18:04)
[2020-04-22] MEDS ORDERED: PIPERACILLIN/TAZOBACTAM 3.375 G in DEXT 5% WATER 100 ML IV SCH (23:00)
[2020-04-23 01:51] VITALS: BP 106/63
[2020-04-23] MEDS ORDERED: METO25TA6 GT (02:44)
[2020-04-23] MEDS ORDERED: [UNRECOGNIZED DRUG - CODE] IV (02:50)
[2020-04-23] MEDS ORDERED: MIDO5TAB4 MT (02:50)
[2020-04-23] MEDS ORDERED: TRAZ-251 MT (02:50)
[2020-04-23 04:00] VITALS: BP 100/58
[2020-04-23 06:45] LABS: BASOPHILS % 0.6 % (0.0-2.0); EOSINOPHILS % 0.4 % (0.0-5.0); HEMATOCRIT. 23.6 % (42.0-52.0); HEMOGLOBIN. 7.9 g/dL (14.0-18.0); LYMPHOCYTES % 9.2 % (20.0-50.0); MEAN CORPUSCULAR HEMOGLOBIN 22.9 pg (28.0-32.0); MEAN CORPUSCULAR VOLUME 68.2 fL (80.0-94.0); MEAN PLATELET VOLUME 7.8 fl (7.4-10.4); MONOCYTES % 9.8 % (2.0-8.0); PLATELET 322 x1000/uL (130-400); RED BLOOD CELL COUNT 3.45 mill/uL (4.7-6.1); RED CELL DISTRIBUTION WIDTH 20.8 % (11.6-14.6)
[2020-04-23 07:22] LABS: CHLORIDE 106 mEq/L (98-107)
[2020-04-23 08:00] VITALS: BP 109/68
[2020-04-23 12:00] VITALS: BP 103/70
[2020-04-23] MEDS: PIPERACILLIN/TAZOBACTAM 3.375 G in DEXT 5% WATER 100 ML IV SCH ×2 (14:37→21:03)
[2020-04-23] MEDS: SODIUM CHLORIDE 0.9% 1,000 ML IV SCH (14:38)
[2020-04-23] MEDS ORDERED: CEFTRIAXONE 1 G PREMIX 50 ML IV SCH (15:00)
[2020-04-23] MEDS ORDERED: LEVOFLOXACIN 500MG PREMIX 100 ML IV SCH (15:30)
[2020-04-23 16:00] VITALS: BP 99/61
[2020-04-23 20:00] VITALS: BP 101/61
[2020-04-24] VITALS: BP 102/70
[2020-04-24 04:00] VITALS: BP 104/63
[2020-04-24] MEDS: PIPERACILLIN/TAZOBACTAM 3.375 G in DEXT 5% WATER 100 ML IV SCH ×4 (04:51→21:03)
[2020-04-24 07:49] LABS: BASOPHILS % 0.4 % (0.0-2.0); EOSINOPHILS % 0.4 % (0.0-5.0); HEMOGLOBIN. 7.8 g/dL (14.0-18.0); LYMPHOCYTES % 7.7 % (20.0-50.0); MEAN CORPUSCULAR HEMOGLOBIN 22.2 pg (28.0-32.0); MEAN CORPUSCULAR VOLUME 68.5 fL (80.0-94.0); MEAN PLATELET VOLUME 8.1 fl (7.4-10.4); NEUTROPHILS % 81.5 % (40.0-76.0); PLATELET 285 x1000/uL (130-400); RED CELL DISTRIBUTION WIDTH 21.3 % (11.6-14.6)
[2020-04-24 07:58] LABS: CHLORIDE 105 mEq/L (98-107)
[2020-04-24 08:00] VITALS: BP 104/70
[2020-04-24] MEDS: SODIUM CHLORIDE 0.9% 1,000 ML IV SCH (09:44)
[2020-04-24 12:00] VITALS: BP 108/69
[2020-04-24] MEDS ORDERED: POTASSIUM CHLORIDE INJ 40 MEQ in DEXT 5% WATER 250 ML IV SCH (13:00)
[2020-04-24 16:00] VITALS: BP 109/72
[2020-04-24 20:00] VITALS: BP 101/66
[2020-04-25] VITALS: BP 100/70
[2020-04-25] MEDS: PIPERACILLIN/TAZOBACTAM 3.375 G in DEXT 5% WATER 100 ML IV SCH ×4 (03:09→20:01)
[2020-04-25 04:00] VITALS: BP 100/59
[2020-04-25] MEDS: SODIUM CHLORIDE 0.9% 1,000 ML IV SCH (05:00)
[2020-04-25 06:27] LABS: BASOPHILS % 0.4 % (0.0-2.0); EOSINOPHILS % 0.7 % (0.0-5.0); HEMOGLOBIN. 8.2 g/dL (14.0-18.0); LYMPHOCYTES % 9.3 % (20.0-50.0); MEAN CORPUSCULAR HEMOGLOBIN 22.3 pg (28.0-32.0); MEAN CORPUSCULAR VOLUME 68.1 fL (80.0-94.0); MEAN PLATELET VOLUME 7.8 fl (7.4-10.4); MONOCYTES % 9.5 % (2.0-8.0); NEUTROPHILS % 80.1 % (40.0-76.0); PLATELET 283 x1000/uL (130-400); RED BLOOD CELL COUNT 3.67 mill/uL (4.7-6.1); RED CELL DISTRIBUTION WIDTH 21.4 % (11.6-14.6)
[2020-04-25 07:12] LABS: CHLORIDE 102 mEq/L (98-107)
[2020-04-25 08:00] VITALS: BP 110/73
[2020-04-25 12:00] VITALS: BP 109/66
[2020-04-25 16:00] VITALS: BP 112/74
[2020-04-25 20:00] VITALS: BP 106/67
[2020-04-26] VITALS (7 sets, daily range): BP systolic 95–114; BP diastolic 60–69
[2020-04-26] MEDS: SODIUM CHLORIDE 0.9% 1,000 ML IV SCH ×2 (03:02→23:29)
[2020-04-26] MEDS: PIPERACILLIN/TAZOBACTAM 3.375 G in DEXT 5% WATER 100 ML IV SCH ×4 (03:02→20:15)
[2020-04-26 08:39] LABS: BASOPHILS % 0.5 % (0.0-2.0); EOSINOPHILS % 0.9 % (0.0-5.0); HEMATOCRIT. 29.8 % (42.0-52.0); HEMOGLOBIN. 9.6 g/dL (14.0-18.0); LYMPHOCYTES % 7.4 % (20.0-50.0); MEAN CORPUSCULAR HEMOGLOBIN 21.5 pg (28.0-32.0); MEAN CORPUSCULAR VOLUME 67.2 fL (80.0-94.0); MEAN PLATELET VOLUME 8.6 fl (7.4-10.4); MONOCYTES % 12.7 % (2.0-8.0); NEUTROPHILS % 78.5 % (40.0-76.0); PLATELET 261 x1000/uL (130-400); RED BLOOD CELL COUNT 4.44 mill/uL (4.7-6.1); RED CELL DISTRIBUTION WIDTH 21.7 % (11.6-14.6)
[2020-04-26 09:54] LABS: CHLORIDE 100 mEq/L (98-107)
[2020-04-26 23:40] LABS: CLARITY URINE CLEAR (CLEAR); COLOR URINE YELLOW (YELLOW); KETONES URINE NEGATIVE (NEGATIVE); LEUKOCYTE ESTERASE URINE NEGATIVE (NEGATIVE); NITRITE URINE NEGATIVE (NEGATIVE); OCCULT BLOOD URINE TRACE (NEGATIVE); PH URINE 6.5 (4.5-8.0); PROTEIN URINE NEGATIVE (NEGATIVE); SPECIFIC GRAVITY URINE 1.017 (1.005-1.030); UROBILINOGEN URINE 0.2 E.U./dL (0.2-1.0)
[2020-04-27] VITALS: BP 100/70
[2020-04-27] MEDS: PIPERACILLIN/TAZOBACTAM 3.375 G in DEXT 5% WATER 100 ML IV SCH ×3 (03:43→16:51)
[2020-04-27 04:00] VITALS: BP 112/72
[2020-04-27 07:49] LABS: HEMATOCRIT. 26.6 % (42.0-52.0); HEMOGLOBIN. 8.6 g/dL (14.0-18.0); MEAN CORPUSCULAR HEMOGLOBIN 22.2 pg (28.0-32.0); PLATELET 370 x1000/uL (130-400); RED CELL DISTRIBUTION WIDTH 21.6 % (11.6-14.6)
[2020-04-27 08:05] LABS: CHLORIDE 100 mEq/L (98-107)
[2020-04-27 12:00] VITALS: BP 109/65
[2020-04-27 13:39] LABS: PLATELET ESTIMATE NORMAL
[2020-04-27 14:08] VITALS: BP 109/65
== END 2020-04-27 18:10 | DRG 720 ==
LOC: ER 10:49 → 8WST 16:21 → EDBEDREQ 16:23 → EDBEDREQTM 16:23 → ENRESERV 20:56
PROVIDERS: ADMIT Family Medicine Adult Medicine; ATTEND Family Medicine Adult Medicine
DX: A41.9 Sepsis, unspecified organism (principal); E43 Unspecified severe protein-calorie malnutrition; L89.894 Pressure ulcer of other site, stage 4; J94.8 Other specified pleural conditions; D64.9 Anemia, unspecified; E87.1 Hypo-osmolality and hyponatremia; E78.5 Hyperlipidemia, unspecified; F20.9 Schizophrenia, unspecified; I27.20 Pulmonary hypertension, unspecified; N39.0 Urinary tract infection, site not specified; R13.10 Dysphagia, unspecified; L89.896 Pressure-induced deep tissue damage of other site; N28.9 Disorder of kidney and ureter, unspecified; I11.0 Hypertensive heart disease with heart failure; I50.9 Heart failure, unspecified; E78.00 Pure hypercholesterolemia, unspecified; G35 Multiple sclerosis; F99 Mental disorder, not otherwise specified; J44.9 Chronic obstructive pulmonary disease, unspecified; E87.6 Hypokalemia; Z93.1 Gastrostomy status; Z79.1 Long term (current) use of non-steroidal anti-inflammatories (NSAID); Z79.899 Other long term (current) drug therapy; Z68.1 Body mass index [BMI] 19.9 or less, adult; Z82.49 Family history of ischemic heart disease and other diseases of the circulatory system
CPT/HCPCS: 36415; 71045; 80048; 80053; 80305; 81003; 82040; 82550; 83605; 83880; 84134; 84145; 84484; 85025; 87077; 93005; 93970; 99285; J0696; J1956; J2543; J3480; J7030; J7060

== ENCOUNTER 2020-05-15 15:39 | Inpatient (IN) | payer MEDICAID ==
[~2020-05-15] VITALS: Ht 167.6 cm; Wt 49.0 kg
[~2020-05-15 15:39] MED LIST changes: -ASCO500C18 PO; +METO25TA6 GT; +MIDO5TAB4 MT; -MULT-1146 PO; -OMEP20CA14 PO; -ONDA4TAB5 MT; +TRAZ-251 MT; +[UNRECOGNIZED DRUG - CODE] IV
[2020-05-15] MEDS ORDERED: VANCOMYCIN 1 G PREMIX 200 ML IV ONE (16:30)
[2020-05-15] MEDS ORDERED: SODIUM CHLORIDE 0.9% 1000ML BAG (SEPSIS BOLUS) IV ONE (16:30)
[2020-05-15] MEDS ORDERED: PIPERACILLIN/TAZ 3.375G PREMIX 50 ML IV ONE (16:30)
[2020-05-15 16:43] LABS: HEMATOCRIT. 23.3 % (42.0-52.0); HEMOGLOBIN. 7.6 g/dL (14.0-18.0); MEAN CORPUSCULAR HEMOGLOBIN 22.7 pg (28.0-32.0); MEAN CORPUSCULAR VOLUME 69.4 fL (80.0-94.0); MEAN PLATELET VOLUME 8.8 fl (7.4-10.4); PLATELET 214 x1000/uL (130-400); RED BLOOD CELL COUNT 3.36 mill/uL (4.7-6.1); RED CELL DISTRIBUTION WIDTH 22.9 % (11.6-14.6)
[2020-05-15 16:51] LABS: CHLORIDE 107 mEq/L (98-107)
[2020-05-15 16:54] LABS: INR 1.2; PARTIAL THROMBOPLASTIN TIME 31.2 sec (23.4-31.0); PROTHROMBIN TIME 13.1 sec (9.6-11.0)
[2020-05-15 17:36] LABS: PLATELET ESTIMATE NORMAL
[2020-05-15] MEDS ORDERED: NOREPINEPHRINE 8MG/250ML PMX 250 ML IV ONE (18:00)
[2020-05-15] MEDS ORDERED: NOREPINEPHRINE 8 MG in DEXTROSE 5% WATER 250 ML IV NR (18:15)
[2020-05-15] MEDS ORDERED: ONDANSETRON HCL 4MG/2ML INJ IV PRN (18:45)
[2020-05-15 20:04] LABS: CLARITY URINE CLEAR (CLEAR); COLOR URINE YELLOW (YELLOW); KETONES URINE NEGATIVE (NEGATIVE); LEUKOCYTE ESTERASE URINE NEGATIVE (NEGATIVE); NITRITE URINE NEGATIVE (NEGATIVE); OCCULT BLOOD URINE 2+ (NEGATIVE); PH URINE 7.5 (4.5-8.0); PROTEIN URINE NEGATIVE (NEGATIVE); UROBILINOGEN URINE 0.2 E.U./dL (0.2-1.0)
[2020-05-15] MEDS: HEPARIN 5000 UNITS/ML VIAL SUBCUT SCH (22:52)
[2020-05-16] VITALS (45 sets, daily range): BP systolic 91–128; BP diastolic 54–80
[2020-05-16] MEDS ORDERED: PIPERACILLIN/TAZOBACTAM 3.375 G in DEXTROSE 5% WATER 50 ML IV SCH
[2020-05-16] MEDS ORDERED: NOREPINEPHRINE 8MG/250ML PMX 250 ML IV PRN (01:45)
[2020-05-16] MEDS ORDERED: NOREPINEPHRINE 8 MG in DEXTROSE 5% WATER 250 ML IV PRN (02:00)
[2020-05-16] MEDS ORDERED: VANCOMYCIN 1 G PREMIX 200 ML IV SCH (03:00)
[2020-05-16 05:45] LABS: CHLORIDE 107 mEq/L (98-107)
[2020-05-16 05:47] LABS: BASOPHILS % 0.5 % (0.0-2.0); EOSINOPHILS % 0.2 % (0.0-5.0); HEMATOCRIT. 24.1 % (42.0-52.0); HEMOGLOBIN. 7.8 g/dL (14.0-18.0); LYMPHOCYTES % 7.9 % (20.0-50.0); MEAN CORPUSCULAR HEMOGLOBIN 22.1 pg (28.0-32.0); MEAN CORPUSCULAR VOLUME 68.3 fL (80.0-94.0); MONOCYTES % 7.8 % (2.0-8.0); NEUTROPHILS % 83.6 % (40.0-76.0); PLATELET 253 x1000/uL (130-400); RED BLOOD CELL COUNT 3.52 mill/uL (4.7-6.1); RED CELL DISTRIBUTION WIDTH 22.7 % (11.6-14.6)
[2020-05-16] MEDS ORDERED: POTASSIUM CHLORIDE 20MEQ/PACKET PO SCH (07:00)
[2020-05-16] MEDS ORDERED: PNEUMOCOCCAL 23-VAL P-SAC VAC 0.5 ML IM ONE (08:00)
[2020-05-16] MEDS: PIPERACILLIN/TAZOBACTAM 3.375 G in DEXT 5% WATER 100 ML IV SCH ×3 (09:02→20:40)
[2020-05-16] MEDS: HEPARIN 5000 UNITS/ML VIAL SUBCUT SCH (09:03)
[2020-05-16] MEDS ORDERED: LIDOCAINE HCL 1% 20ML VIAL (Pyxis) INJ ONE (10:40)
[2020-05-16 11:29] LABS: PLATELET ESTIMATE NORMAL
[2020-05-16] MEDS: ACETAMINOPHEN 325MG TABLET PO PRN ×2 (11:36→18:06)
[2020-05-16] MEDS: VANCOMYCIN 750 MG PREMIX 150 ML IV SCH ×2 (14:52→22:54)
[2020-05-17] VITALS (22 sets, daily range): BP systolic 105–139; BP diastolic 57–91
[2020-05-17] MEDS: PIPERACILLIN/TAZOBACTAM 3.375 G in DEXT 5% WATER 100 ML IV SCH ×4 (02:12→21:55)
[2020-05-17 05:41] LABS: HEMATOCRIT. 26.5 % (42.0-52.0); HEMOGLOBIN. 8.8 g/dL (14.0-18.0); MEAN CORPUSCULAR HEMOGLOBIN 22.5 pg (28.0-32.0); MEAN CORPUSCULAR VOLUME 67.9 fL (80.0-94.0); MEAN PLATELET VOLUME 9.4 fl (7.4-10.4); PLATELET 263 x1000/uL (130-400); RED CELL DISTRIBUTION WIDTH 23.4 % (11.6-14.6)
[2020-05-17 05:50] LABS: CHLORIDE 104 mEq/L (98-107)
[2020-05-17] MEDS: VANCOMYCIN 750 MG PREMIX 150 ML IV SCH ×3 (06:46→23:55)
[2020-05-17 07:13] LABS: PLATELET ESTIMATE NORMAL
[2020-05-17] MEDS ORDERED: POTASSIUM CHLORIDE 20MEQ/PACKET PO SCH (08:30)
[2020-05-17] MEDS: ACETAMINOPHEN 325MG TABLET PO PRN ×2 (09:43→16:19)
[2020-05-17] MEDS ORDERED: POTASSIUM CHLORIDE INJ 40 MEQ in DEXT 5% WATER 250 ML IV SCH (10:00)
[2020-05-18 00:22] VITALS: BP 123/74
[2020-05-18] MEDS: PIPERACILLIN/TAZOBACTAM 3.375 G in DEXT 5% WATER 100 ML IV SCH ×4 (02:47→21:42)
[2020-05-18 04:00] VITALS: BP 110/77
[2020-05-18] MEDS: VANCOMYCIN 750 MG PREMIX 150 ML IV SCH ×2 (06:34→14:49)
[2020-05-18 07:53] VITALS: BP 118/76
[2020-05-18 09:32] LABS: BASOPHILS % 0.6 % (0.0-2.0); EOSINOPHILS % 1.8 % (0.0-5.0); HEMATOCRIT. 25.3 % (42.0-52.0); HEMOGLOBIN. 8.4 g/dL (14.0-18.0); MEAN CORPUSCULAR HEMOGLOBIN 22.7 pg (28.0-32.0); MEAN CORPUSCULAR VOLUME 68.1 fL (80.0-94.0); MEAN PLATELET VOLUME 9.3 fl (7.4-10.4); MONOCYTES % 8.3 % (2.0-8.0); NEUTROPHILS % 78.3 % (40.0-76.0); PLATELET 250 x1000/uL (130-400); RED BLOOD CELL COUNT 3.71 mill/uL (4.7-6.1); RED CELL DISTRIBUTION WIDTH 23.1 % (11.6-14.6)
[2020-05-18 09:38] LABS: CHLORIDE 106 mEq/L (98-107)
[2020-05-18 11:33] VITALS: BP 109/76
[2020-05-18] MEDS ORDERED: POTASSIUM CHLORIDE 20MEQ/PACKET GT NR (12:15)
[2020-05-18 16:25] VITALS: BP 98/62
[2020-05-18] MEDS ORDERED: DOCUSATE SODIUM 250MG CAPSULE PO SCH (17:00)
[2020-05-18] MEDS: FERROUS SULFATE 325MG TABLET PO SCH (17:08)
[2020-05-18 20:00] VITALS: BP 113/78
[2020-05-18] MEDS: ACETAMINOPHEN 325MG TABLET PO PRN (21:43)
[2020-05-19] VITALS: BP 106/72
[2020-05-19] MEDS: VANCOMYCIN 750 MG PREMIX 150 ML IV SCH ×4 (00:10→23:30)
[2020-05-19 04:00] VITALS: BP 117/71
[2020-05-19 05:49] LABS: CHLORIDE 107 mEq/L (98-107)
[2020-05-19 05:57] LABS: BASOPHILS % 0.8 % (0.0-2.0); EOSINOPHILS % 2.9 % (0.0-5.0); HEMATOCRIT. 27.6 % (42.0-52.0); HEMOGLOBIN. 8.9 g/dL (14.0-18.0); MEAN CORPUSCULAR HEMOGLOBIN 22.6 pg (28.0-32.0); MEAN CORPUSCULAR VOLUME 70.2 fL (80.0-94.0); MEAN PLATELET VOLUME 8.9 fl (7.4-10.4); MONOCYTES % 10.1 % (2.0-8.0); NEUTROPHILS % 72.2 % (40.0-76.0); PLATELET 283 x1000/uL (130-400); RED BLOOD CELL COUNT 3.93 mill/uL (4.7-6.1); RED CELL DISTRIBUTION WIDTH 23.4 % (11.6-14.6)
[2020-05-19] MEDS: PIPERACILLIN/TAZOBACTAM 3.375 G in DEXT 5% WATER 100 ML IV SCH ×4 (06:06→21:08)
[2020-05-19 07:56] VITALS: BP 119/72
[2020-05-19] MEDS: DOCUSATE SODIUM SUGAR FREE 100MG/10ML UDC GT SCH ×2 (08:21→08:22)
[2020-05-19] MEDS: FERROUS SULFATE 325MG TABLET PO SCH ×3 (08:21→16:50)
[2020-05-19 12:00] VITALS: BP 115/78
[2020-05-19 15:46] VITALS: BP 97/59
[2020-05-19 20:00] VITALS: BP 112/77
[2020-05-20] VITALS: BP 112/73
[2020-05-20] MEDS: PIPERACILLIN/TAZOBACTAM 3.375 G in DEXT 5% WATER 100 ML IV SCH ×3 (02:23→14:38)
[2020-05-20 04:00] VITALS: BP 106/69
[2020-05-20 05:58] LABS: CHLORIDE 105 mEq/L (98-107)
[2020-05-20] MEDS: ACETAMINOPHEN 325MG TABLET PO PRN ×2 (06:15→20:55)
[2020-05-20] MEDS: VANCOMYCIN 750 MG PREMIX 150 ML IV SCH ×3 (06:15→23:52)
[2020-05-20 06:16] LABS: BASOPHILS % 0.8 % (0.0-2.0); EOSINOPHILS % 4.3 % (0.0-5.0); HEMATOCRIT. 27.1 % (42.0-52.0); HEMOGLOBIN. 8.8 g/dL (14.0-18.0); LYMPHOCYTES % 13.2 % (20.0-50.0); MEAN CORPUSCULAR HEMOGLOBIN 22.6 pg (28.0-32.0); MEAN CORPUSCULAR VOLUME 69.4 fL (80.0-94.0); MEAN PLATELET VOLUME 8.9 fl (7.4-10.4); MONOCYTES % 9.3 % (2.0-8.0); NEUTROPHILS % 72.4 % (40.0-76.0); PLATELET 310 x1000/uL (130-400); RED CELL DISTRIBUTION WIDTH 23.6 % (11.6-14.6)
[2020-05-20 08:00] VITALS: BP 108/73
[2020-05-20] MEDS: FERROUS SULFATE 325MG TABLET PO SCH ×3 (08:24→17:45)
[2020-05-20] MEDS: DOCUSATE SODIUM SUGAR FREE 100MG/10ML UDC GT SCH (08:24)
[2020-05-20 12:00] VITALS: BP 111/73
[2020-05-20 16:00] VITALS: BP 104/71
[2020-05-20 20:00] VITALS: BP 105/76
[2020-05-20] MEDS: SULFAMETHOXAZOLE/TRIMETHOPRIM 800/160MG TABLET PO SCH (20:54)
[2020-05-21] VITALS: BP 108/76
[2020-05-21 04:00] VITALS: BP 114/75
[2020-05-21 06:27] LABS: CHLORIDE 107 mEq/L (98-107)
[2020-05-21 06:36] LABS: VANCOMYCIN TROUGH 26.7 ug/mL (5.0-10.0)
[2020-05-21] MEDS: VANCOMYCIN 750 MG PREMIX 150 ML IV SCH (06:52)
[2020-05-21 07:20] LABS: BASOPHILS % 0.4 % (0.0-2.0); EOSINOPHILS % 3.2 % (0.0-5.0); HEMATOCRIT. 28.6 % (42.0-52.0); HEMOGLOBIN. 9.3 g/dL (14.0-18.0); MEAN CORPUSCULAR HEMOGLOBIN 22.5 pg (28.0-32.0); MEAN CORPUSCULAR VOLUME 69.5 fL (80.0-94.0); MEAN PLATELET VOLUME 8.9 fl (7.4-10.4); MONOCYTES % 6.9 % (2.0-8.0); NEUTROPHILS % 79.5 % (40.0-76.0); PLATELET 378 x1000/uL (130-400); RED BLOOD CELL COUNT 4.11 mill/uL (4.7-6.1); RED CELL DISTRIBUTION WIDTH 23.5 % (11.6-14.6)
[2020-05-21 08:00] VITALS: BP 99/67
[2020-05-21] MEDS: SULFAMETHOXAZOLE/TRIMETHOPRIM 800/160MG TABLET PO SCH (09:00)
[2020-05-21] MEDS: FERROUS SULFATE 325MG TABLET PO SCH (09:53)
[2020-05-21] MEDS: DOCUSATE SODIUM SUGAR FREE 100MG/10ML UDC GT SCH (09:54)
[2020-05-21 11:13] VITALS: BP 105/72
[2020-05-21] MEDS ORDERED: VANCOMYCIN 1 G PREMIX 200 ML IV SCH (18:00)
== END 2020-05-21 14:16 | DRG 720 ==
LOC: ER 15:39 → MICUSO 18:06 → EDBEDREQ 18:13 → EDBEDREQTM 18:13 → ENRESERV 20:48 → 6WST 05-17 12:24
PROVIDERS: ADMIT Internal Medicine; ATTEND Internal Medicine
PROC: 05HM33Z Insertion of Infusion Device into Right Internal Jugular Vein, Percutaneous Approach (ICD-10-PCS; principal; 2020-05-15)
PROC: 3E0V3GC Introduction of Other Therapeutic Substance into Bones, Percutaneous Approach (ICD-10-PCS; 2020-05-15)
PROC: 05HY33Z Insertion of Infusion Device into Upper Vein, Percutaneous Approach (ICD-10-PCS; 2020-05-16)
PROC: B54MZZA Ultrasonography of Right Upper Extremity Veins, Guidance (ICD-10-PCS; 2020-05-16)
DX: A41.9 Sepsis, unspecified organism (principal); R65.21 Severe sepsis with septic shock; G82.50 Quadriplegia, unspecified; E43 Unspecified severe protein-calorie malnutrition; J90 Pleural effusion, not elsewhere classified; L89.894 Pressure ulcer of other site, stage 4; R13.10 Dysphagia, unspecified; G35 Multiple sclerosis; F20.9 Schizophrenia, unspecified; I27.20 Pulmonary hypertension, unspecified; E78.5 Hyperlipidemia, unspecified; I10 Essential (primary) hypertension; Z20.822 Contact with and (suspected) exposure to COVID-19; F99 Mental disorder, not otherwise specified; D50.9 Iron deficiency anemia, unspecified; Z93.1 Gastrostomy status; Z86.73 Personal history of transient ischemic attack (TIA), and cerebral infarction without residual deficits; Z82.49 Family history of ischemic heart disease and other diseases of the circulatory system; Z68.1 Body mass index [BMI] 19.9 or less, adult; Z87.440 Personal history of urinary (tract) infections; Z86.16 Personal history of COVID-19; Z87.01 Personal history of pneumonia (recurrent)
CPT/HCPCS: 36415; 71045; 76604; 76937; 80048; 80053; 80202; 81003; 82040; 82270; 83605; 83735; 83880; 84134; 84145; 84484; 85025; 87077; 87186; 87493; 93005; 93306; 99291; A6261; C1725; J1644; J2543; J3370; J3480; J3490; J7030; J7060; U0003; A4315

== ENCOUNTER 2020-12-22 11:21 | Inpatient (IN) | payer MEDICAID ==
[~2020-12-22] VITALS: Ht 177.8 cm; Wt 50.8 kg
[2020-12-22] MEDS ORDERED: AZITHROMYCIN 500MG/250ML 250 ML IV ONE (11:45)
[2020-12-22] MEDS ORDERED: SODIUM CHLORIDE 0.9% 1000ML BAG (SEPSIS BOLUS) IV ONE (11:45)
[2020-12-22] MEDS ORDERED: PIPERACILLIN/TAZ 3.375G PREMIX 50 ML IV ONE (11:45)
[2020-12-22] MEDS ORDERED: ACETAMINOPHEN 650MG SUPP PR ONE (12:15)
[2020-12-22 12:38] LABS: HEMATOCRIT. 35.6 % (42.0-52.0); HEMOGLOBIN. 11.9 g/dL (14.0-18.0); MEAN CORPUSCULAR HEMOGLOBIN 24.3 pg (28.0-32.0); MEAN CORPUSCULAR VOLUME 72.9 fL (80.0-94.0); MEAN PLATELET VOLUME 9.5 fl (7.4-10.4); PLATELET 217 x1000/uL (130-400); RED BLOOD CELL COUNT 4.88 mill/uL (4.7-6.1); RED CELL DISTRIBUTION WIDTH 20.1 % (11.6-14.6)
[2020-12-22 12:44] LABS: CHLORIDE 101 mEq/L (98-107)
[2020-12-22 12:59] LABS: PLATELET ESTIMATE NORMAL
[2020-12-22] MEDS ORDERED: VANCOMYCIN 1 G PREMIX 200 ML IV SCH (15:00)
[2020-12-22 18:50] VITALS: BP 92/60
[2020-12-22 19:30] VITALS: BP 101/60
[2020-12-22 20:00] VITALS: BP 101/60
[2020-12-22 20:05] LABS: CLARITY URINE CLOUDY (CLEAR); COLOR URINE YELLOW (YELLOW); KETONES URINE TRACE (NEGATIVE); LEUKOCYTE ESTERASE URINE 2+ (NEGATIVE); NITRITE URINE NEGATIVE (NEGATIVE); OCCULT BLOOD URINE 3+ (NEGATIVE); PH URINE 6.5 (4.5-8.0); PROTEIN URINE 2+ (NEGATIVE); SPECIFIC GRAVITY URINE 1.021 (1.005-1.030); UROBILINOGEN URINE 0.2 E.U./dL (0.2-1.0)
[2020-12-22] MEDS: CEFEPIME 1,000 MG in DEXTROSE 5% WATER 50 ML IV SCH (22:01)
[2020-12-22] MEDS: ACETAMINOPHEN 650MG SUPP PR PRN (22:02)
[2020-12-23] VITALS: BP 104/62
[2020-12-23] MEDS: VANCOMYCIN 1 G PREMIX 200 ML IV SCH ×2 (02:45→14:46)
[2020-12-23 04:00] VITALS: BP 100/65
[2020-12-23] MEDS: CEFEPIME 1,000 MG in DEXTROSE 5% WATER 50 ML IV SCH ×2 (09:09→22:26)
[2020-12-23] MEDS: ACETAMINOPHEN 650MG SUPP PR PRN (12:12)
[2020-12-23] MEDS: DEXT 5%/0.45% NACL 1000ML 1,000 ML IV SCH (12:17)
[2020-12-23] MEDS ORDERED: NA PHOS,M-B/NA PHOS,DI-BA ENEMA 118ML PR SCH (14:15)
[2020-12-23] MEDS: MORPHINE SULFATE 2 MG/ML CPJ (NOT FOR IM USE) IV PRN (19:01)
[2020-12-23 20:00] VITALS: BP 115/77
[2020-12-23] MEDS: SODIUM HYPOCHLORITE 0.125% 473ML SOLUTION TOP SCH (22:27)
[2020-12-24] VITALS: BP 110/60
[2020-12-24] MEDS ORDERED: BISACODYL 5MG TABLET PO PRN (01:30)
[2020-12-24 04:00] VITALS: BP 101/62
[2020-12-24] MEDS: METOCLOPRAMIDE HCL 10MG/2ML VIAL IV SCH ×4 (06:34→19:04)
[2020-12-24] MEDS: VANCOMYCIN 1 G PREMIX 200 ML IV SCH (06:34)
[2020-12-24] MEDS: DEXT 5%/0.45% NACL 1000ML 1,000 ML IV SCH ×2 (06:34→13:19)
[2020-12-24 06:53] LABS: BASOPHILS % 0.7 % (0.0-2.0); EOSINOPHILS % 0.8 % (0.0-5.0); HEMATOCRIT. 28.2 % (42.0-52.0); HEMOGLOBIN. 9.8 g/dL (14.0-18.0); MEAN CORPUSCULAR HEMOGLOBIN 25.2 pg (28.0-32.0); MEAN CORPUSCULAR VOLUME 72.5 fL (80.0-94.0); MEAN PLATELET VOLUME 9.9 fl (7.4-10.4); MONOCYTES % 12.9 % (2.0-8.0); NEUTROPHILS % 72.6 % (40.0-76.0); PLATELET 194 x1000/uL (130-400); RED BLOOD CELL COUNT 3.88 mill/uL (4.7-6.1); RED CELL DISTRIBUTION WIDTH 19.6 % (11.6-14.6)
[2020-12-24 07:05] LABS: CHLORIDE 106 mEq/L (98-107)
[2020-12-24 08:15] VITALS: BP 104/68
[2020-12-24] MEDS: SODIUM HYPOCHLORITE 0.125% 473ML SOLUTION TOP SCH ×2 (08:53→19:05)
[2020-12-24] MEDS ORDERED: ENOXAPARIN 40MG/0.4ML SYR SUBCUT SCH (09:00)
[2020-12-24] MEDS: BISACODYL 5MG TABLET PO SCH (09:00)
[2020-12-24] MEDS ORDERED: POTASSIUM CHLORIDE 20MEQ TABLET SR PO SCH (09:00)
[2020-12-24] MEDS ORDERED: POTASSIUM CHLORIDE INJ 40 MEQ in DEXT 5% WATER 250 ML IV ONE (09:00)
[2020-12-24] MEDS ORDERED: NALOXONE HCL 0.4MG/ML VIAL IV PRN (09:00)
[2020-12-24] MEDS: CEFEPIME 1,000 MG in DEXTROSE 5% WATER 50 ML IV SCH ×2 (09:10→22:13)
[2020-12-24] MEDS: KCL 20MEQ/100ML PREMIX 100 ML IV SCH ×2 (11:50→13:18)
[2020-12-24 12:00] VITALS: BP 99/64
[2020-12-24] MEDS ORDERED: DIATR MEGLU/DIATRIZOATE SOLN 30ML GT SCH (14:15)
[2020-12-24] MEDS ORDERED: DIATR MEGLU/DIATRIZOATE SOLN 30ML ONE (15:07)
[2020-12-24 16:00] VITALS: BP 105/70
[2020-12-24] MEDS: VANCOMYCIN 750 MG PREMIX 150 ML IV SCH (19:04)
[2020-12-24 20:00] VITALS: BP 113/73
[2020-12-24 20:57] LABS: TOTAL IRON BINDING CAPACITY 174 ug/dL (250-450)
[2020-12-24] MEDS ORDERED: MAGNESIUM CITRATE 300ML SOLUTION GT NR (21:00)
[2020-12-24 21:10] LABS: FERRITIN 95 ng/mL (22-322)
[2020-12-24 21:58] LABS: VITAMIN B12 SERUM 1779 pg/mL (211-911)
[2020-12-24] MEDS: SENNOSIDES/DOCUSATE SOD 8.6/50MG TABLET PO SCH (22:00)
[2020-12-24] MEDS: LACTULOSE 20G/30ML UDC PO SCH (22:00)
[2020-12-24 22:25] LABS: FOLIC ACID (FOLATE) SERUM > 20.00 ng/mL (>5.38)
[2020-12-24] MEDS: MORPHINE SULFATE 2 MG/ML CPJ (NOT FOR IM USE) IV PRN (22:41)
[2020-12-25] VITALS: BP 118/80
[2020-12-25] MEDS: METOCLOPRAMIDE HCL 10MG/2ML VIAL IV SCH ×5 (00:28→23:17)
[2020-12-25] MEDS: DEXT 5%/0.45% NACL 1000ML 1,000 ML IV SCH ×2 (03:30→05:47)
[2020-12-25 04:00] VITALS: BP 100/68
[2020-12-25] MEDS: VANCOMYCIN 750 MG PREMIX 150 ML IV SCH (05:47)
[2020-12-25] MEDS: LACTULOSE 20G/30ML UDC PO SCH ×4 (05:47→21:28)
[2020-12-25 07:00] LABS: BASOPHILS % 0.5 % (0.0-2.0); EOSINOPHILS % 0.6 % (0.0-5.0); HEMATOCRIT. 28.5 % (42.0-52.0); HEMOGLOBIN. 9.8 g/dL (14.0-18.0); LYMPHOCYTES % 9.7 % (20.0-50.0); MEAN CORPUSCULAR VOLUME 72.7 fL (80.0-94.0); MEAN PLATELET VOLUME 9.1 fl (7.4-10.4); MONOCYTES % 10.9 % (2.0-8.0); NEUTROPHILS % 78.3 % (40.0-76.0); PLATELET 216 x1000/uL (130-400); RED BLOOD CELL COUNT 3.93 mill/uL (4.7-6.1); RED CELL DISTRIBUTION WIDTH 19.4 % (11.6-14.6)
[2020-12-25 07:08] LABS: CHLORIDE 106 mEq/L (98-107)
[2020-12-25 08:00] VITALS: BP 95/65
[2020-12-25] MEDS: POLYETHYLENE GLYCOL 3350 (17GM) 1 DOSE PACK PO SCH (09:27)
[2020-12-25] MEDS: CEFEPIME 1,000 MG in DEXTROSE 5% WATER 50 ML IV SCH (09:27)
[2020-12-25] MEDS: BISACODYL 5MG TABLET PO SCH (09:28)
[2020-12-25] MEDS: SODIUM HYPOCHLORITE 0.125% 473ML SOLUTION TOP SCH ×2 (09:28→18:46)
[2020-12-25] MEDS ORDERED: POTASSIUM CHLORIDE INJ 40 MEQ in DEXT 5% WATER 250 ML IV ONE (11:15)
[2020-12-25 12:00] VITALS: BP 110/67
[2020-12-25] MEDS: KCL 20MEQ/100ML PREMIX 100 ML IV SCH ×2 (12:56→18:49)
[2020-12-25] MEDS: MEROPENEM 1,000 MG in SODIUM CHLORIDE 0.9% 100 ML IV SCH ×2 (15:15→23:15)
[2020-12-25 16:00] VITALS: BP 104/68
[2020-12-25] MEDS ORDERED: BISACODYL 10MG SUPP PR NR (17:30)
[2020-12-25] MEDS ORDERED: MAGNESIUM CITRATE 300ML SOLUTION PO NR (18:30)
[2020-12-25] MEDS: MORPHINE SULFATE 2 MG/ML CPJ (NOT FOR IM USE) IV PRN (19:03)
[2020-12-25 20:00] VITALS: BP 97/65
[2020-12-25] MEDS: SENNOSIDES/DOCUSATE SOD 8.6/50MG TABLET PO SCH (21:28)
[2020-12-26] VITALS: BP 101/71
[2020-12-26 03:10] LABS: EOSINOPHILS % 1.1 % (0.0-5.0); HEMOGLOBIN. 10.2 g/dL (14.0-18.0); LYMPHOCYTES % 15.3 % (20.0-50.0); MEAN CORPUSCULAR HEMOGLOBIN 24.8 pg (28.0-32.0); MEAN CORPUSCULAR VOLUME 72.8 fL (80.0-94.0); MEAN PLATELET VOLUME 8.7 fl (7.4-10.4); MONOCYTES % 10.9 % (2.0-8.0); NEUTROPHILS % 71.7 % (40.0-76.0); PLATELET 242 x1000/uL (130-400); RED BLOOD CELL COUNT 4.12 mill/uL (4.7-6.1); RED CELL DISTRIBUTION WIDTH 19.6 % (11.6-14.6)
[2020-12-26 03:17] LABS: CHLORIDE 108 mEq/L (98-107)
[2020-12-26 04:00] VITALS: BP 101/68
[2020-12-26] MEDS: DEXT 5%/0.45% NACL 1000ML 1,000 ML IV SCH ×2 (06:43→14:14)
[2020-12-26] MEDS: MEROPENEM 1,000 MG in SODIUM CHLORIDE 0.9% 100 ML IV SCH ×3 (06:43→23:40)
[2020-12-26] MEDS: LACTULOSE 20G/30ML UDC PO SCH ×3 (06:43→23:40)
[2020-12-26] MEDS: METOCLOPRAMIDE HCL 10MG/2ML VIAL IV SCH ×4 (06:43→23:40)
[2020-12-26 08:00] VITALS: BP 101/63
[2020-12-26] MEDS: BISACODYL 5MG TABLET PO SCH (09:36)
[2020-12-26] MEDS: POLYETHYLENE GLYCOL 3350 (17GM) 1 DOSE PACK PO SCH (09:36)
[2020-12-26] MEDS: BISACODYL 10MG SUPP PR SCH (09:36)
[2020-12-26] MEDS: SODIUM HYPOCHLORITE 0.125% 473ML SOLUTION TOP SCH ×2 (09:36→18:17)
[2020-12-26 12:00] VITALS: BP 101/65
[2020-12-26 16:00] VITALS: BP 100/70
[2020-12-26 20:00] VITALS: BP 99/64
[2020-12-26] MEDS: SENNOSIDES/DOCUSATE SOD 8.6/50MG TABLET PO SCH (23:40)
[2020-12-27] VITALS: BP 98/68
[2020-12-27 04:00] VITALS: BP 97/68
[2020-12-27] MEDS: MEROPENEM 1,000 MG in SODIUM CHLORIDE 0.9% 100 ML IV SCH ×3 (06:56→22:15)
[2020-12-27] MEDS: METOCLOPRAMIDE HCL 10MG/2ML VIAL IV SCH ×3 (06:56→18:10)
[2020-12-27] MEDS: LACTULOSE 20G/30ML UDC PO SCH ×3 (06:56→22:20)
[2020-12-27] MEDS: DEXT 5%/0.45% NACL 1000ML 1,000 ML IV SCH ×2 (07:32→22:20)
[2020-12-27 08:00] VITALS: BP 97/70
[2020-12-27] MEDS: BISACODYL 10MG SUPP PR SCH (09:25)
[2020-12-27] MEDS: POLYETHYLENE GLYCOL 3350 (17GM) 1 DOSE PACK PO SCH (09:25)
[2020-12-27] MEDS: BISACODYL 5MG TABLET PO SCH (09:25)
[2020-12-27] MEDS: SODIUM HYPOCHLORITE 0.125% 473ML SOLUTION TOP SCH ×2 (09:26→18:10)
[2020-12-27 12:00] VITALS: BP 98/64
[2020-12-27 16:00] VITALS: BP 97/69
[2020-12-27 20:00] VITALS: BP 101/69
[2020-12-27] MEDS: SENNOSIDES/DOCUSATE SOD 8.6/50MG TABLET PO SCH (22:15)
[2020-12-27] MEDS: MORPHINE SULFATE 2 MG/ML CPJ (NOT FOR IM USE) IV PRN (22:40)
[2020-12-28] VITALS: BP 97/68
[2020-12-28] MEDS: METOCLOPRAMIDE HCL 10MG/2ML VIAL IV SCH ×4 (01:11→17:23)
[2020-12-28 04:00] VITALS: BP 90/53
[2020-12-28] MEDS: LACTULOSE 20G/30ML UDC PO SCH ×3 (06:00→21:45)
[2020-12-28] MEDS: MEROPENEM 1,000 MG in SODIUM CHLORIDE 0.9% 100 ML IV SCH ×3 (06:17→21:44)
[2020-12-28 06:39] LABS: BASOPHILS % 0.4 % (0.0-2.0); EOSINOPHILS % 1.2 % (0.0-5.0); HEMATOCRIT. 27.8 % (42.0-52.0); HEMOGLOBIN. 9.4 g/dL (14.0-18.0); LYMPHOCYTES % 12.2 % (20.0-50.0); MEAN CORPUSCULAR HEMOGLOBIN 24.3 pg (28.0-32.0); MEAN CORPUSCULAR VOLUME 71.7 fL (80.0-94.0); MONOCYTES % 10.1 % (2.0-8.0); NEUTROPHILS % 76.1 % (40.0-76.0); PLATELET 250 x1000/uL (130-400); RED BLOOD CELL COUNT 3.87 mill/uL (4.7-6.1)
[2020-12-28 06:45] LABS: CHLORIDE 107 mEq/L (98-107)
[2020-12-28] MEDS: POLYETHYLENE GLYCOL 3350 (17GM) 1 DOSE PACK PO SCH (09:11)
[2020-12-28] MEDS: BISACODYL 5MG TABLET PO SCH (09:12)
[2020-12-28] MEDS: BISACODYL 10MG SUPP PR SCH (09:12)
[2020-12-28] MEDS: ACETAMINOPHEN 325MG TABLET PO PRN (09:14)
[2020-12-28] MEDS: SODIUM HYPOCHLORITE 0.125% 473ML SOLUTION TOP SCH ×2 (09:19→17:20)
[2020-12-28] MEDS ORDERED: POTASSIUM CHLORIDE INJ 40 MEQ in DEXT 5% WATER 250 ML IV ONE (09:30)
[2020-12-28] MEDS: KCL 20MEQ/100ML PREMIX 100 ML IV SCH ×2 (10:59→13:18)
[2020-12-28] MEDS ORDERED: KCL 20MEQ/100ML PREMIX 100 ML IV SCH (11:00)
[2020-12-28] MEDS: DEXT 5%/0.45% NACL 1000ML 1,000 ML IV SCH (13:13)
[2020-12-28] MEDS ORDERED: DIATR MEGLU/DIATRIZOATE SOLN 30ML PO NR (13:15)
[2020-12-28 20:00] VITALS: BP 110/73
[2020-12-28] MEDS: SENNOSIDES/DOCUSATE SOD 8.6/50MG TABLET PO SCH (21:00)
[2020-12-29] VITALS: BP 108/71
[2020-12-29] MEDS: METOCLOPRAMIDE HCL 10MG/2ML VIAL IV SCH ×3 (00:43→12:42)
[2020-12-29] MEDS: DEXT 5%/0.45% NACL 1000ML 1,000 ML IV SCH ×2 (00:50→09:13)
[2020-12-29 04:00] VITALS: BP 105/71
[2020-12-29 06:45] LABS: CHLORIDE 106 mEq/L (98-107)
[2020-12-29 06:52] LABS: BASOPHILS % 0.6 % (0.0-2.0); EOSINOPHILS % 1.4 % (0.0-5.0); HEMATOCRIT. 27.3 % (42.0-52.0); HEMOGLOBIN. 9.3 g/dL (14.0-18.0); LYMPHOCYTES % 14.9 % (20.0-50.0); MEAN CORPUSCULAR VOLUME 73.1 fL (80.0-94.0); MEAN PLATELET VOLUME 8.6 fl (7.4-10.4); MONOCYTES % 10.5 % (2.0-8.0); NEUTROPHILS % 72.6 % (40.0-76.0); PLATELET 254 x1000/uL (130-400); RED BLOOD CELL COUNT 3.74 mill/uL (4.7-6.1); RED CELL DISTRIBUTION WIDTH 19.1 % (11.6-14.6)
[2020-12-29] MEDS: LACTULOSE 20G/30ML UDC PO SCH ×3 (06:56→21:27)
[2020-12-29] MEDS: MEROPENEM 1,000 MG in SODIUM CHLORIDE 0.9% 100 ML IV SCH ×3 (06:57→21:27)
[2020-12-29] MEDS ORDERED: POTASSIUM CHLORIDE 20MEQ TABLET SR PO NR (07:30)
[2020-12-29] MEDS ORDERED: POTASSIUM CHLORIDE INJ 40 MEQ in DEXT 5% WATER 250 ML IV ONE (07:30)
[2020-12-29 08:00] VITALS: BP 101/68
[2020-12-29] MEDS ORDERED: POTASSIUM CHLORIDE 20MEQ/PACKET PO NR (08:45)
[2020-12-29] MEDS: BISACODYL 5MG TABLET PO SCH (08:46)
[2020-12-29] MEDS: BISACODYL 10MG SUPP PR SCH ×2 (08:46→09:00)
[2020-12-29] MEDS: SODIUM HYPOCHLORITE 0.125% 473ML SOLUTION TOP SCH (08:46)
[2020-12-29] MEDS: POLYETHYLENE GLYCOL 3350 (17GM) 1 DOSE PACK PO SCH (08:46)
[2020-12-29 12:00] VITALS: BP 114/74
[2020-12-29] MEDS ORDERED: DIATR MEGLU/DIATRIZOATE SOLN 30ML PEG SCH (12:00)
[2020-12-29] MEDS: KCL 20MEQ/100ML PREMIX 100 ML IV SCH ×2 (12:42→15:31)
[2020-12-29] MEDS: ACETAMINOPHEN 325MG TABLET PO PRN (12:42)
[2020-12-29] MEDS ORDERED: DIATR MEGLU/DIATRIZOATE SOLN 30ML ONE (14:51)
[2020-12-29 16:00] VITALS: BP 105/61
[2020-12-29 16:22] LABS: CHLORIDE 107 mEq/L (98-107)
[2020-12-29 20:00] VITALS: BP 113/76
[2020-12-29] MEDS: SENNOSIDES/DOCUSATE SOD 8.6/50MG TABLET PO SCH (21:27)
[2020-12-30] VITALS (7 sets, daily range): BP systolic 20–120; BP diastolic 65–114
[2020-12-30] MEDS: METOCLOPRAMIDE HCL 10MG/2ML VIAL IV SCH ×4 (00:29→17:26)
[2020-12-30] MEDS: DEXT 5%/0.45% NACL 1000ML 1,000 ML IV SCH (03:30)
[2020-12-30] MEDS: LACTULOSE 20G/30ML UDC PO SCH ×3 (05:24→21:25)
[2020-12-30] MEDS: MEROPENEM 1,000 MG in SODIUM CHLORIDE 0.9% 100 ML IV SCH ×3 (05:25→21:25)
[2020-12-30] MEDS: SODIUM HYPOCHLORITE 0.125% 473ML SOLUTION TOP SCH ×2 (08:36→17:26)
[2020-12-30] MEDS: BISACODYL 10MG SUPP PR SCH (08:36)
[2020-12-30] MEDS: POLYETHYLENE GLYCOL 3350 (17GM) 1 DOSE PACK PO SCH (08:37)
[2020-12-30] MEDS: BISACODYL 5MG TABLET PO SCH (08:37)
[2020-12-30 09:38] LABS: HEMATOCRIT 27.6 % (42.0-52.0); HEMOGLOBIN 9.4 g/dL (14.0-18.0); MEAN CORPUSCULAR HEMOGLOBIN 24.9 pg (28.0-32.0); MEAN CORPUSCULAR VOLUME 72.9 fL (80.0-94.0); PLATELET 251 x1000/uL (130-400); RED BLOOD CELL COUNT 3.79 mill/uL (4.7-6.1); RED CELL DISTRIBUTION WIDTH 19.1 % (11.6-14.6)
[2020-12-30 09:41] LABS: CHLORIDE 105 mEq/L (98-107)
[2020-12-30] MEDS ORDERED: MAGNESIUM SULFATE 1GM/2ML VIAL IM ONE (10:00)
[2020-12-30] MEDS ORDERED: MAGNESIUM 1 G PREMIX 100 ML IV SCH (11:00)
[2020-12-30] MEDS ORDERED: KCL 20MEQ/100ML PREMIX 100 ML IV SCH (12:00)
[2020-12-30] MEDS ORDERED: LIDOCAINE HCL 1% 20ML VIAL (Pyxis) INJ ONE (12:39)
[2020-12-30] MEDS ORDERED: IOHEXOL-300 50 ML BOTTLE IV ONE (13:49)
[2020-12-30] MEDS ORDERED: HEPARIN 100 UNITS/1 ML VIAL IVF PRN (14:30)
[2020-12-30] MEDS ORDERED: ERTA1VIA3 IJ (16:54)
[2020-12-30 19:06] LABS: OVA & PARASITE EXAM Final report (.)
[2020-12-30 19:06] LABS: OVA & PARASITE EXAM Final report (.)
[2020-12-30] MEDS: SENNOSIDES/DOCUSATE SOD 8.6/50MG TABLET PO SCH (21:25)
[2020-12-30] MEDS: ACETAMINOPHEN 325MG TABLET PO PRN (22:52)
== END 2020-12-30 23:40 | DRG 720 ==
LOC: ER 11:21 → 6WST 16:22 → EDBEDREQTM 16:25 → EDBEDREQ 16:25 → ENRESERV 16:31 → 6WST 12-24 05:26
PROVIDERS: ADMIT Family Medicine Adult Medicine; ATTEND Family Medicine Adult Medicine
PROC: 02HV33Z Insertion of Infusion Device into Superior Vena Cava, Percutaneous Approach (ICD-10-PCS; principal; 2020-12-30)
PROC: B548ZZA Ultrasonography of Superior Vena Cava, Guidance (ICD-10-PCS; 2020-12-30)
PROC: B5181ZA Fluoroscopy of Superior Vena Cava using Low Osmolar Contrast, Guidance (ICD-10-PCS; 2020-12-30)
DX: A41.9 Sepsis, unspecified organism (principal); E43 Unspecified severe protein-calorie malnutrition; L89.814 Pressure ulcer of head, stage 4; M86.152 Other acute osteomyelitis, left femur; G82.20 Paraplegia, unspecified; I27.20 Pulmonary hypertension, unspecified; K56.49 Other impaction of intestine; L89.894 Pressure ulcer of other site, stage 4; I13.0 Hypertensive heart and chronic kidney disease with heart failure and stage 1 through stage 4 chronic kidney disease, or unspecified chronic kidney disease; I50.9 Heart failure, unspecified; E11.22 Type 2 diabetes mellitus with diabetic chronic kidney disease; K56.41 Fecal impaction; R13.10 Dysphagia, unspecified; G35 Multiple sclerosis; N39.0 Urinary tract infection, site not specified; F32.A Depression, unspecified; L85.3 Xerosis cutis; M24.50 Contracture, unspecified joint; Z20.822 Contact with and (suspected) exposure to COVID-19; D50.9 Iron deficiency anemia, unspecified; D53.9 Nutritional anemia, unspecified; E11.69 Type 2 diabetes mellitus with other specified complication; E78.00 Pure hypercholesterolemia, unspecified; E87.6 Hypokalemia; F41.9 Anxiety disorder, unspecified; J43.8 Other emphysema; F20.9 Schizophrenia, unspecified; K56.7 Ileus, unspecified; K80.20 Calculus of gallbladder without cholecystitis without obstruction; R65.20 Severe sepsis without septic shock; K21.9 Gastro-esophageal reflux disease without esophagitis; L89.90 Pressure ulcer of unspecified site, unspecified stage; N18.9 Chronic kidney disease, unspecified; I25.10 Atherosclerotic heart disease of native coronary artery without angina pectoris; Z68.1 Body mass index [BMI] 19.9 or less, adult; Z79.899 Other long term (current) drug therapy; Z93.1 Gastrostomy status; Z87.01 Personal history of pneumonia (recurrent); Z86.73 Personal history of transient ischemic attack (TIA), and cerebral infarction without residual deficits; Z82.49 Family history of ischemic heart disease and other diseases of the circulatory system
CPT/HCPCS: 36415; 71045; 74018; 74176; 77001; 80048; 80053; 80202; 81003; 82040; 82270; 82607; 82728; 82746; 83540; 83550; 83605; 83735; 83880; 84134; 84145; 84484; 85025; 85027; 85044; 85651; 87015; 87045; 87177; 87209; 87426; 87427; 87449; 87493; 89055; 93005; 93970; 99285; C1887; C1893; J0456; J0692; J2185; J2270; J2543; J2765; J3370; J3475; J3480; J3490; J7030; J7050; J7060; Q9963; Q9967; A4315

== ENCOUNTER 2021-03-05 13:49 | Inpatient (IN) | payer MEDICAID ==
[~2021-03-05] VITALS: Ht 172.7 cm; Wt 50.9 kg
[~2021-03-05 13:49] MED LIST changes: +ERTA1VIA3 IJ
[2021-03-05] MEDS ORDERED: VANCOMYCIN 1 G PREMIX 200 ML IV ONE (14:30)
[2021-03-05] MEDS ORDERED: SODIUM CHLORIDE 0.9% 1000ML BAG (SEPSIS BOLUS) IV ONE (14:30)
[2021-03-05] MEDS ORDERED: CEFTRIAXONE 1 G PREMIX 50 ML IV ONE (14:30)
[2021-03-05 14:45] LABS: BASOPHILS % 0.3 % (0.0-2.0); EOSINOPHILS % 0.7 % (0.0-5.0); HEMATOCRIT. 36.2 % (42.0-52.0); HEMOGLOBIN. 11.7 g/dL (14.0-18.0); LYMPHOCYTES % 9.5 % (20.0-50.0); MEAN CORPUSCULAR HEMOGLOBIN 23.8 pg (28.0-32.0); MEAN CORPUSCULAR VOLUME 73.9 fL (80.0-94.0); MEAN PLATELET VOLUME 9.6 fl (7.4-10.4); MONOCYTES % 9.5 % (2.0-8.0); PLATELET 245 x1000/uL (130-400); RED BLOOD CELL COUNT 4.91 mill/uL (4.7-6.1); RED CELL DISTRIBUTION WIDTH 18.3 % (11.6-14.6)
[2021-03-05 14:47] LABS: CHLORIDE 105 mEq/L (98-107)
[2021-03-05] MEDS ORDERED: DIPHENHYDRAMINE 50MG/ML VIAL IV PRN (19:15)
[2021-03-05] MEDS ORDERED: MAGNESIUM/ALUMINUM HYDROXIDE/SIMETHICONE 30ML UDC PO PRN (19:15)
[2021-03-05] MEDS ORDERED: ACETAMINOPHEN 325MG TABLET PO PRN ×2 (19:15)
[2021-03-05] MEDS ORDERED: IPRATROPIUM/ALBUTEROL 0.5-3(2.5)MG/3ML NEB HHN PRN (19:15)
[2021-03-05] MEDS ORDERED: ONDANSETRON HCL 4MG/2ML INJ IV PRN (19:15)
[2021-03-05] MEDS ORDERED: DOCUSATE SODIUM 100MG CAPSULE PO PRN (19:15)
[2021-03-05] MEDS ORDERED: CLONIDINE 0.1MG TABLET PO PRN (19:15)
[2021-03-05] MEDS ORDERED: GUAIFENESIN 200MG/10ML SUGAR FREE UDC PO PRN (19:15)
[2021-03-05] MEDS: ENOXAPARIN 40MG/0.4ML SYR SUBCUT SCH (20:19)
[2021-03-05] MEDS ORDERED: NOREPINEPHRINE 8 MG in DEXT 5% WATER 242 ML IV PRN ×2 (21:45→22:00)
[2021-03-05] MEDS: MORPHINE SULFATE 2 MG/ML CPJ (NOT FOR IM USE) IV PRN (22:41)
[2021-03-06] MEDS: MORPHINE SULFATE 2 MG/ML CPJ (NOT FOR IM USE) IV PRN (03:19)
[2021-03-06 06:04] LABS: CHLORIDE 108 mEq/L (98-107)
[2021-03-06 06:08] LABS: BASOPHILS % 0.4 % (0.0-2.0); EOSINOPHILS % 1.4 % (0.0-5.0); HEMATOCRIT. 29.3 % (42.0-52.0); HEMOGLOBIN. 9.7 g/dL (14.0-18.0); LYMPHOCYTES % 9.1 % (20.0-50.0); MEAN CORPUSCULAR HEMOGLOBIN 24.6 pg (28.0-32.0); MEAN CORPUSCULAR VOLUME 74.2 fL (80.0-94.0); MEAN PLATELET VOLUME 9.1 fl (7.4-10.4); NEUTROPHILS % 80.1 % (40.0-76.0); PLATELET 235 x1000/uL (130-400); RED BLOOD CELL COUNT 3.95 mill/uL (4.7-6.1); RED CELL DISTRIBUTION WIDTH 18.3 % (11.6-14.6)
[2021-03-06] MEDS ORDERED: CEFTRIAXONE 1 G PREMIX 50 ML IV SCH (19:30)
[2021-03-06] MEDS ORDERED: MAGNESIUM/ALUMINUM HYDROXIDE/SIMETHICONE 30ML UDC PO PRN (19:30)
[2021-03-06] MEDS ORDERED: BISACODYL 10MG SUPP PR SCH (19:30)
[2021-03-06] MEDS ORDERED: LACTULOSE 20G/30ML UDC PO SCH (19:30)
[2021-03-06] MEDS ORDERED: DEXTROSE 50% WATER 50ML SYRINGE IV PRN ×2 (19:30)
[2021-03-06] MEDS ORDERED: NA PHOS,M-B/NA PHOS,DI-BA ENEMA 118ML PR PRN (19:30)
[2021-03-06] MEDS ORDERED: ACETAMINOPHEN 325MG TABLET PO PRN (19:30)
[2021-03-06] MEDS: ENOXAPARIN 40MG/0.4ML SYR SUBCUT SCH (20:14)
[2021-03-06] MEDS: DOCUSATE SODIUM 100MG CAPSULE PO SCH (20:14)
[2021-03-06] MEDS: SODIUM CHLORIDE 0.9% 1,000 ML IV SCH (20:16)
[2021-03-06 20:28] LABS: CLARITY URINE CLOUDY (CLEAR); COLOR URINE DK YELLOW (YELLOW); KETONES URINE 4+ (NEGATIVE); LEUKOCYTE ESTERASE URINE 3+ (NEGATIVE); NITRITE URINE NEGATIVE (NEGATIVE); OCCULT BLOOD URINE TRACE (NEGATIVE); PH URINE 6.5 (4.5-8.0); PROTEIN URINE 1+ (NEGATIVE); SPECIFIC GRAVITY URINE 1.025 (1.005-1.030); UROBILINOGEN URINE 0.2 E.U./dL (0.2-1.0)
[2021-03-06] MEDS: INSULIN LISPRO 100 UNITS/ML SUBCUT SCH (21:00)
[2021-03-06] MEDS: BLOOD SUGAR DIAGNOSTIC STRIP TEST SCH (21:32)
[2021-03-06] MEDS: ATORVASTATIN CALCIUM 10MG TABLET PO SCH (22:01)
[2021-03-06] MEDS: HYDROCODONE/ACETAMINOPHEN 5/325MG TABLET PO PRN (22:02)
[2021-03-07] VITALS (7 sets, daily range): BP systolic 80–112; BP diastolic 39–79
[2021-03-07] MEDS: HYDROCODONE/ACETAMINOPHEN 5/325MG TABLET PO PRN (03:34)
[2021-03-07] MEDS: OMEPRAZOLE 20MG CAPSULE EXTENDED RELEASE PO SCH (06:06)
[2021-03-07] MEDS: BLOOD SUGAR DIAGNOSTIC STRIP TEST SCH ×4 (06:13→20:42)
[2021-03-07] MEDS: INSULIN LISPRO 100 UNITS/ML SUBCUT SCH ×4 (06:14→20:42)
[2021-03-07 06:15] LABS: BASOPHILS % 0.6 % (0.0-2.0); EOSINOPHILS % 1.5 % (0.0-5.0); HEMOGLOBIN. 9.5 g/dL (14.0-18.0); MEAN CORPUSCULAR HEMOGLOBIN 24.4 pg (28.0-32.0); MEAN CORPUSCULAR VOLUME 74.6 fL (80.0-94.0); MEAN PLATELET VOLUME 9.2 fl (7.4-10.4); MONOCYTES % 10.3 % (2.0-8.0); NEUTROPHILS % 74.6 % (40.0-76.0); PLATELET 254 x1000/uL (130-400); RED BLOOD CELL COUNT 3.89 mill/uL (4.7-6.1)
[2021-03-07 06:18] LABS: CHLORIDE 108 mEq/L (98-107)
[2021-03-07] MEDS ORDERED: NALOXONE HCL 0.4MG/ML VIAL IV PRN (12:45)
[2021-03-07] MEDS: DOCUSATE SODIUM 100MG CAPSULE PO SCH (17:00)
[2021-03-07] MEDS: SODIUM CHLORIDE 0.9% 1,000 ML IV SCH (20:06)
[2021-03-07] MEDS: ENOXAPARIN 40MG/0.4ML SYR SUBCUT SCH (20:06)
[2021-03-07] MEDS: ATORVASTATIN CALCIUM 10MG TABLET PO SCH (20:43)
[2021-03-07] MEDS ORDERED: CEFTRIAXONE 1,000 MG in DEXTROSE 5% WATER 50 ML IV SCH (21:00)
[2021-03-07] MEDS ORDERED: SODIUM CHLORIDE 0.9% 500 ML IV NR (23:30)
[2021-03-07] MEDS: METOCLOPRAMIDE HCL 10MG/2ML VIAL IV SCH (23:31)
[2021-03-08] VITALS (11 sets, daily range): BP systolic 90–112; BP diastolic 57–70
[2021-03-08] MEDS: OMEPRAZOLE 20MG CAPSULE EXTENDED RELEASE PO SCH (06:20)
[2021-03-08] MEDS: METOCLOPRAMIDE HCL 10MG/2ML VIAL IV SCH ×3 (06:20→18:00)
[2021-03-08] MEDS: BLOOD SUGAR DIAGNOSTIC STRIP TEST SCH ×4 (06:20→21:26)
[2021-03-08] MEDS: INSULIN LISPRO 100 UNITS/ML SUBCUT SCH ×4 (06:21→21:00)
[2021-03-08 07:10] LABS: BASOPHILS % 0.5 % (0.0-2.0); EOSINOPHILS % 0.7 % (0.0-5.0); HEMATOCRIT. 29.4 % (42.0-52.0); HEMOGLOBIN. 9.8 g/dL (14.0-18.0); LYMPHOCYTES % 15.1 % (20.0-50.0); MEAN CORPUSCULAR HEMOGLOBIN 24.8 pg (28.0-32.0); MEAN CORPUSCULAR VOLUME 74.4 fL (80.0-94.0); MEAN PLATELET VOLUME 9.3 fl (7.4-10.4); MONOCYTES % 10.8 % (2.0-8.0); NEUTROPHILS % 72.9 % (40.0-76.0); PLATELET 201 x1000/uL (130-400); RED BLOOD CELL COUNT 3.94 mill/uL (4.7-6.1); RED CELL DISTRIBUTION WIDTH 17.7 % (11.6-14.6)
[2021-03-08 08:15] LABS: CHLORIDE 111 mEq/L (98-107)
[2021-03-08 08:22] LABS: PHOSPHORUS 2.8 mg/dL (2.5-4.9)
[2021-03-08] MEDS: DOCUSATE SODIUM 100MG CAPSULE PO SCH ×2 (09:00→17:00)
[2021-03-08] MEDS: SODIUM CHLORIDE 0.9% 1,000 ML IV SCH ×2 (09:00→21:08)
[2021-03-08] MEDS: SODIUM HYPOCHLORITE 0.125% 473ML SOLUTION TOP SCH ×2 (13:29→21:05)
[2021-03-08] MEDS: AMOXICILLIN 500 MG CAPSULE PO SCH ×2 (15:15→21:05)
[2021-03-08] MEDS: ATORVASTATIN CALCIUM 10MG TABLET PO SCH (21:04)
[2021-03-08] MEDS: ENOXAPARIN 40MG/0.4ML SYR SUBCUT SCH (21:04)
[2021-03-08] MEDS ORDERED: DEXT 5%/0.9% NACL 1,000 ML IV SCH (21:45)
[2021-03-09] VITALS (7 sets, daily range): BP systolic 106–131; BP diastolic 63–74
[2021-03-09] MEDS: METOCLOPRAMIDE HCL 10MG/2ML VIAL IV SCH ×2 (00:38→06:08)
[2021-03-09] MEDS: OMEPRAZOLE 20MG CAPSULE EXTENDED RELEASE PO SCH (06:08)
[2021-03-09] MEDS: AMOXICILLIN 500 MG CAPSULE PO SCH (06:08)
[2021-03-09 07:33] LABS: CHLORIDE 112 mEq/L (98-107)
[2021-03-09 07:41] LABS: BASOPHILS % 0.5 % (0.0-2.0); EOSINOPHILS % 1.8 % (0.0-5.0); HEMATOCRIT. 26.5 % (42.0-52.0); HEMOGLOBIN. 9.1 g/dL (14.0-18.0); LYMPHOCYTES % 11.2 % (20.0-50.0); MEAN CORPUSCULAR HEMOGLOBIN 25.2 pg (28.0-32.0); MEAN CORPUSCULAR VOLUME 73.3 fL (80.0-94.0); MEAN PLATELET VOLUME 9.3 fl (7.4-10.4); MONOCYTES % 8.9 % (2.0-8.0); NEUTROPHILS % 77.6 % (40.0-76.0); PLATELET 197 x1000/uL (130-400); RED BLOOD CELL COUNT 3.62 mill/uL (4.7-6.1)
[2021-03-09] MEDS: DOCUSATE SODIUM 100MG CAPSULE PO SCH (08:55)
[2021-03-09] MEDS: SODIUM HYPOCHLORITE 0.125% 473ML SOLUTION TOP SCH (08:56)
[2021-03-09] MEDS ORDERED: BLOOD SUGAR DIAGNOSTIC STRIP TEST SCH (09:00)
== END 2021-03-09 13:20 | DRG 720 ==
LOC: ER 13:49 → EDBEDREQ 20:04 → EDBEDREQTM 20:04 → MICUSO 21:41 → EDBEDREQSVC 21:53 → EDBEDREQTM 21:53 → EDBEDREQSVC 03-06 09:53 → 3WST 03-07 12:32
PROVIDERS: ADMIT Family Medicine Adult Medicine; ATTEND Family Medicine Adult Medicine
DX: A41.1 Sepsis due to other specified staphylococcus (principal); G82.50 Quadriplegia, unspecified; E44.0 Moderate protein-calorie malnutrition; I13.0 Hypertensive heart and chronic kidney disease with heart failure and stage 1 through stage 4 chronic kidney disease, or unspecified chronic kidney disease; I27.20 Pulmonary hypertension, unspecified; I50.9 Heart failure, unspecified; M86.652 Other chronic osteomyelitis, left thigh; E11.22 Type 2 diabetes mellitus with diabetic chronic kidney disease; D64.9 Anemia, unspecified; E11.69 Type 2 diabetes mellitus with other specified complication; E78.5 Hyperlipidemia, unspecified; J43.9 Emphysema, unspecified; K21.9 Gastro-esophageal reflux disease without esophagitis; G35 Multiple sclerosis; I25.10 Atherosclerotic heart disease of native coronary artery without angina pectoris; N18.9 Chronic kidney disease, unspecified; E78.00 Pure hypercholesterolemia, unspecified; F32.A Depression, unspecified; Z20.822 Contact with and (suspected) exposure to COVID-19; F20.9 Schizophrenia, unspecified; F41.9 Anxiety disorder, unspecified; K56.41 Fecal impaction; N39.0 Urinary tract infection, site not specified; K80.20 Calculus of gallbladder without cholecystitis without obstruction; Z68.1 Body mass index [BMI] 19.9 or less, adult; Z93.1 Gastrostomy status; Z87.11 Personal history of peptic ulcer disease; Z87.01 Personal history of pneumonia (recurrent); Z86.73 Personal history of transient ischemic attack (TIA), and cerebral infarction without residual deficits; Z82.49 Family history of ischemic heart disease and other diseases of the circulatory system; S71.102A Unspecified open wound, left thigh, initial encounter
CPT/HCPCS: 36415; 71045; 74018; 74176; 80048; 80053; 81003; 82040; 82962; 83036; 83605; 83735; 83880; 84100; 84134; 84145; 84443; 84484; 85025; 86850; 86900; 87070; 87077; 87186; 87426; 92610; 93005; 93970; 99291; J0696; J1200; J1650; J2270; J2765; J3370; J3490; J7030; J7040; J7042; J7060

== ENCOUNTER 2022-01-05 22:39 | Inpatient (IN) | payer MEDICAID ==
[~2022-01-05] VITALS: Ht 154.9 cm; Wt 57.2 kg
[~2022-01-05 22:39] MED LIST changes: +ENOX40SY27 SQ; -LOV40 SQ
[2022-01-05] MEDS ORDERED: ACETAMINOPHEN 325MG TABLET PO STA (22:56)
[2022-01-05] MEDS ORDERED: SODIUM CHLORIDE 0.9% 1000ML BAG (SEPSIS BOLUS) IV ONE (23:00)
[2022-01-05] MEDS ORDERED: PIPERACILLIN/TAZ 3.375G PREMIX 50 ML IV ONE (23:00)
[2022-01-05] MEDS ORDERED: VANCOMYCIN 1G PREMIX 200 ML IV ONE (23:00)
[2022-01-06 00:19] LABS: HEMATOCRIT. 35.8 % (42.0-52.0); HEMOGLOBIN. 12.3 g/dL (14.0-18.0); MEAN CORPUSCULAR HEMOGLOBIN 26.5 pg (28.0-32.0); MEAN CORPUSCULAR VOLUME 77.1 fL (80.0-94.0); MEAN PLATELET VOLUME 9.8 fl (7.4-10.4); PLATELET 317 x1000/uL (130-400); RED BLOOD CELL COUNT 4.64 mill/uL (4.7-6.1); RED CELL DISTRIBUTION WIDTH 17.6 % (11.6-14.6)
[2022-01-06 00:26] LABS: CHLORIDE 100 mEq/L (98-107)
[2022-01-06] MEDS ORDERED: VANCOMYCIN 1,000 MG in DEXT 5% WATER 250 ML IV NR (01:15)
[2022-01-06] MEDS ORDERED: ACETAMINOPHEN 650MG SUPP PR ONE (01:30)
[2022-01-06 06:54] LABS: CLARITY URINE CLEAR (CLEAR); COLOR URINE DARK YELLOW (YELLOW); KETONES URINE NEGATIVE (NEGATIVE); LEUKOCYTE ESTERASE URINE 2+ (NEGATIVE); NITRITE URINE NEGATIVE (NEGATIVE); OCCULT BLOOD URINE 2+ (NEGATIVE); PROTEIN URINE 2+ (NEGATIVE); UROBILINOGEN URINE 0.2 E.U./dL (0.2-1.0)
[2022-01-06 08:00] VITALS: BP 105/70
[2022-01-06 09:15] VITALS: BP 105/70
[2022-01-06 09:30] LABS: PLATELET ESTIMATE NORMAL
[2022-01-06] MEDS ORDERED: ONDANSETRON HCL 4MG/2ML INJ IV PRN (09:30)
[2022-01-06 10:00] VITALS: BP 105/70
[2022-01-06] MEDS: CEFEPIME 1,000 MG in DEXTROSE 5% WATER 50 ML IV SCH ×2 (11:18→22:03)
[2022-01-06 12:00] VITALS: BP_SYST 105; BP_SYST 116; BP_DIAS 48; BP_DIAS 80
[2022-01-06] MEDS: VANCOMYCIN 1G PREMIX 200 ML IV SCH (15:04)
[2022-01-06] MEDS ORDERED: CLON0.1T MT (15:57)
[2022-01-06] MEDS ORDERED: POLY17PO3 MT (15:57)
[2022-01-06] MEDS ORDERED: ENOX40SY27 SQ (15:57)
[2022-01-06] MEDS ORDERED: LEVO750T68 MT (15:57)
[2022-01-06] MEDS ORDERED: SIME40DR70 PO (15:57)
[2022-01-06] MEDS ORDERED: NALOXONE HCL 0.4MG/ML VIAL IV PRN (16:15)
[2022-01-06 18:15] VITALS: BP 103/71
[2022-01-06 20:00] VITALS: BP 140/65
[2022-01-06] MEDS: ENOXAPARIN 40MG/0.4ML SYR SUBCUT SCH (21:39)
[2022-01-07] VITALS: BP 112/69
[2022-01-07] MEDS: VANCOMYCIN 1G PREMIX 200 ML IV SCH ×2 (00:23→11:55)
[2022-01-07 04:00] VITALS: BP 107/72
[2022-01-07 08:00] VITALS: BP 110/68
[2022-01-07] MEDS: CEFEPIME 1,000 MG in DEXTROSE 5% WATER 50 ML IV SCH ×2 (08:26→21:52)
[2022-01-07 12:00] VITALS: BP 105/66
[2022-01-07 12:30] LABS: BASOPHILS % 0.2 % (0.0-2.0); EOSINOPHILS % 0.4 % (0.0-5.0); HEMATOCRIT. 34.4 % (42.0-52.0); LYMPHOCYTES % 8.7 % (20.0-50.0); MEAN CORPUSCULAR HEMOGLOBIN 26.7 pg (28.0-32.0); MEAN CORPUSCULAR VOLUME 76.9 fL (80.0-94.0); MEAN PLATELET VOLUME 9.5 fl (7.4-10.4); MONOCYTES % 12.1 % (2.0-8.0); NEUTROPHILS % 78.6 % (40.0-76.0); PLATELET 251 x1000/uL (130-400); RED BLOOD CELL COUNT 4.48 mill/uL (4.7-6.1); RED CELL DISTRIBUTION WIDTH 17.1 % (11.6-14.6)
[2022-01-07 14:00] VITALS: BP 140/65
[2022-01-07 14:25] LABS: CHLORIDE 105 mEq/L (98-107)
[2022-01-07] MEDS ORDERED: POTASSIUM CHLORIDE 20MEQ/PACKET GT NR (16:00)
[2022-01-07 20:00] VITALS: BP 109/69
[2022-01-07] MEDS: ENOXAPARIN 40MG/0.4ML SYR SUBCUT SCH (21:52)
[2022-01-08] VITALS: BP 115/75
[2022-01-08] MEDS: VANCOMYCIN 1G PREMIX 200 ML IV SCH ×2 (00:20→12:16)
[2022-01-08 04:00] VITALS: BP 116/69
[2022-01-08 08:00] VITALS: BP 109/69
[2022-01-08] MEDS: CEFEPIME 1,000 MG in DEXTROSE 5% WATER 50 ML IV SCH ×2 (09:43→21:39)
[2022-01-08 12:00] VITALS: BP 117/73
[2022-01-08] MEDS: HYDROCODONE/ACETAMINOPHEN 5/325MG TABLET PO PRN ×2 (15:53→21:40)
[2022-01-08 16:00] VITALS: BP 118/81
[2022-01-08 20:00] VITALS: BP 107/68
[2022-01-08] MEDS: ENOXAPARIN 40MG/0.4ML SYR SUBCUT SCH (21:39)
[2022-01-09] VITALS: BP 107/75
[2022-01-09] MEDS: VANCOMYCIN 1G PREMIX 200 ML IV SCH ×2 (01:10→12:26)
[2022-01-09] MEDS: HYDROCODONE/ACETAMINOPHEN 5/325MG TABLET PO PRN (02:06)
[2022-01-09 04:00] VITALS: BP 104/67
[2022-01-09 08:00] VITALS: BP 118/77
[2022-01-09] MEDS: CEFEPIME 1,000 MG in DEXTROSE 5% WATER 50 ML IV SCH ×2 (08:58→21:00)
[2022-01-09] MEDS: MORPHINE SULFATE 2 MG/ML CPJ (NOT FOR IM USE) IV PRN ×2 (08:59→17:49)
[2022-01-09 12:00] VITALS: BP 110/74
[2022-01-09 16:00] VITALS: BP 104/79
[2022-01-09 20:00] VITALS: BP 115/76
[2022-01-10] VITALS: BP 109/76
[2022-01-10] MEDS: VANCOMYCIN 1G PREMIX 200 ML IV SCH ×2 (00:02→12:08)
[2022-01-10] MEDS: ENOXAPARIN 40MG/0.4ML SYR SUBCUT SCH ×2 (00:03→21:36)
[2022-01-10 04:00] VITALS: BP 100/68
[2022-01-10 06:37] LABS: BASOPHILS % 0.5 % (0.0-2.0); EOSINOPHILS % 4.1 % (0.0-5.0); HEMATOCRIT. 30.7 % (42.0-52.0); HEMOGLOBIN. 10.5 g/dL (14.0-18.0); LYMPHOCYTES % 17.6 % (20.0-50.0); MEAN CORPUSCULAR HEMOGLOBIN 26.7 pg (28.0-32.0); MEAN CORPUSCULAR VOLUME 78.1 fL (80.0-94.0); MEAN PLATELET VOLUME 8.8 fl (7.4-10.4); MONOCYTES % 10.3 % (2.0-8.0); NEUTROPHILS % 67.5 % (40.0-76.0); PLATELET 268 x1000/uL (130-400); RED BLOOD CELL COUNT 3.94 mill/uL (4.7-6.1); RED CELL DISTRIBUTION WIDTH 17.2 % (11.6-14.6)
[2022-01-10] MEDS: HYDROCODONE/ACETAMINOPHEN 10/325MG TABLET PO PRN ×2 (07:51→22:13)
[2022-01-10 08:00] VITALS: BP 99/62
[2022-01-10 08:10] LABS: CHLORIDE 106 mEq/L (98-107)
[2022-01-10] MEDS: CEFEPIME 1,000 MG in DEXTROSE 5% WATER 50 ML IV SCH ×2 (09:19→21:37)
[2022-01-10 12:00] VITALS: BP 116/76
[2022-01-10 16:00] VITALS: BP 108/74
[2022-01-10 20:00] VITALS: BP 116/67
[2022-01-11] VITALS: BP 100/66
[2022-01-11] MEDS: VANCOMYCIN 1G PREMIX 200 ML IV SCH ×2 (00:17→12:32)
[2022-01-11 04:00] VITALS: BP 106/68
[2022-01-11 08:00] VITALS: BP 108/67
[2022-01-11] MEDS: CEFEPIME 1,000 MG in DEXTROSE 5% WATER 50 ML IV SCH ×2 (09:08→20:28)
[2022-01-11 12:00] VITALS: BP 102/68
[2022-01-11 16:00] VITALS: BP 112/73
[2022-01-11 20:00] VITALS: BP 121/69
[2022-01-11] MEDS: ENOXAPARIN 40MG/0.4ML SYR SUBCUT SCH (20:29)
[2022-01-12] VITALS: BP 126/66
[2022-01-12] MEDS: VANCOMYCIN 1G PREMIX 200 ML IV SCH ×2 (00:11→12:44)
[2022-01-12 04:00] VITALS: BP 109/79
[2022-01-12 08:20] VITALS: BP 125/82
[2022-01-12] MEDS: CEFEPIME 1,000 MG in DEXTROSE 5% WATER 50 ML IV SCH ×2 (09:22→21:28)
[2022-01-12] MEDS: HYDROCODONE/ACETAMINOPHEN 10/325MG TABLET PO PRN (10:12)
[2022-01-12 12:08] VITALS: BP 119/81
[2022-01-12 16:20] VITALS: BP 111/85
[2022-01-12 20:00] VITALS: BP 119/80
[2022-01-12] MEDS: ENOXAPARIN 40MG/0.4ML SYR SUBCUT SCH (21:27)
[2022-01-13] VITALS: BP 117/79
[2022-01-13] MEDS: HYDROCODONE/ACETAMINOPHEN 10/325MG TABLET PO PRN ×4 (00:11→13:46)
[2022-01-13 04:00] VITALS: BP 127/77
[2022-01-13 08:00] VITALS: BP 128/76
[2022-01-13 08:59] LABS: CHLORIDE 104 mEq/L (98-107)
[2022-01-13 09:10] LABS: CREATINE KINASE 81 IU/L (39-308)
[2022-01-13] MEDS: MULTIVITAMINS,THER W-MINERALS TABLET GT SCH (09:33)
[2022-01-13] MEDS: CEFEPIME 1,000 MG in DEXTROSE 5% WATER 50 ML IV SCH ×2 (09:34→21:20)
[2022-01-13 12:00] VITALS: BP 126/80
[2022-01-13] MEDS: VANCOMYCIN 1G PREMIX 200 ML IV SCH ×2 (13:39)
[2022-01-13] MEDS: VANCOMYCIN 750MG PREMIX 150 ML IV SCH ×2 (13:44→23:00)
[2022-01-13 16:00] VITALS: BP 118/76
[2022-01-13 20:00] VITALS: BP 111/75
[2022-01-13] MEDS: ENOXAPARIN 40MG/0.4ML SYR SUBCUT SCH (21:21)
[2022-01-14] VITALS: BP 103/70
[2022-01-14 04:00] VITALS: BP 116/74
[2022-01-14 08:00] VITALS: BP 113/79
[2022-01-14] MEDS: CEFEPIME 1,000 MG in DEXTROSE 5% WATER 50 ML IV SCH ×2 (08:53→22:55)
[2022-01-14] MEDS: VANCOMYCIN 750MG PREMIX 150 ML IV SCH ×2 (08:53→22:55)
[2022-01-14] MEDS: MULTIVITAMINS,THER W-MINERALS TABLET GT SCH (08:54)
[2022-01-14 12:00] VITALS: BP 107/76
[2022-01-14 16:00] VITALS: BP 105/69
[2022-01-14 20:00] VITALS: BP 101/68
[2022-01-14] MEDS: ENOXAPARIN 40MG/0.4ML SYR SUBCUT SCH (22:55)
[2022-01-15] VITALS: BP 101/68
[2022-01-15 04:00] VITALS: BP 158/40
[2022-01-15 08:00] VITALS: BP 103/71
[2022-01-15 08:39] LABS: CHLORIDE 101 mEq/L (98-107)
[2022-01-15] MEDS: MULTIVITAMINS,THER W-MINERALS TABLET GT SCH (09:46)
[2022-01-15] MEDS: CEFEPIME 1,000 MG in DEXTROSE 5% WATER 50 ML IV SCH ×2 (09:46→20:21)
[2022-01-15] MEDS: VANCOMYCIN 750MG PREMIX 150 ML IV SCH ×2 (09:46→23:13)
[2022-01-15 12:00] VITALS: BP 112/87
[2022-01-15 16:00] VITALS: BP 108/76
[2022-01-15] MEDS: ACETAMINOPHEN 650MG/20.3ML UDC GT PRN (17:04)
[2022-01-15 20:00] VITALS: BP 114/80
[2022-01-15] MEDS: ENOXAPARIN 40MG/0.4ML SYR SUBCUT SCH (20:22)
[2022-01-16] VITALS: BP 115/78
[2022-01-16 04:00] VITALS: BP 109/82
[2022-01-16 08:00] VITALS: BP 119/76
[2022-01-16] MEDS: VANCOMYCIN 750MG PREMIX 150 ML IV SCH ×2 (09:29→22:36)
[2022-01-16] MEDS: MULTIVITAMINS,THER W-MINERALS TABLET GT SCH (09:29)
[2022-01-16] MEDS: CEFEPIME 1,000 MG in DEXTROSE 5% WATER 50 ML IV SCH ×2 (09:29→22:36)
[2022-01-16 12:00] VITALS: BP 107/74
[2022-01-16 16:00] VITALS: BP 115/58
[2022-01-16 20:00] VITALS: BP 140/67
[2022-01-16] MEDS: ENOXAPARIN 40MG/0.4ML SYR SUBCUT SCH (22:36)
[2022-01-17] VITALS: BP 103/79
[2022-01-17 04:00] VITALS: BP 92/52
[2022-01-17 08:00] VITALS: BP 102/60
[2022-01-17] MEDS: MULTIVITAMINS,THER W-MINERALS TABLET GT SCH (08:34)
[2022-01-17] MEDS: CEFEPIME 1,000 MG in DEXTROSE 5% WATER 50 ML IV SCH ×2 (08:34→20:25)
[2022-01-17] MEDS: ACETAMINOPHEN 650MG/20.3ML UDC GT PRN (08:43)
[2022-01-17] MEDS: VANCOMYCIN 750MG PREMIX 150 ML IV SCH ×2 (08:43→21:37)
[2022-01-17 12:00] VITALS: BP 100/66
[2022-01-17 16:00] VITALS: BP 94/55
[2022-01-17 20:00] VITALS: BP 114/68
[2022-01-17] MEDS: ENOXAPARIN 40MG/0.4ML SYR SUBCUT SCH (20:25)
[2022-01-18] VITALS: BP 111/77
[2022-01-18 04:00] VITALS: BP 103/66
[2022-01-18 07:16] LABS: BASOPHILS % 0.4 % (0.0-2.0); EOSINOPHILS % 1.5 % (0.0-5.0); HEMATOCRIT. 33.7 % (42.0-52.0); HEMOGLOBIN. 11.6 g/dL (14.0-18.0); MEAN CORPUSCULAR HEMOGLOBIN 26.4 pg (28.0-32.0); MEAN CORPUSCULAR VOLUME 76.6 fL (80.0-94.0); MEAN PLATELET VOLUME 9.5 fl (7.4-10.4); MONOCYTES % 10.8 % (2.0-8.0); NEUTROPHILS % 75.3 % (40.0-76.0); PLATELET 247 x1000/uL (130-400); RED BLOOD CELL COUNT 4.41 mill/uL (4.7-6.1); RED CELL DISTRIBUTION WIDTH 17.3 % (11.6-14.6)
[2022-01-18 08:00] VITALS: BP_SYST 98; BP_DIAS 47; BP_DIAS 77
[2022-01-18] MEDS: ACETAMINOPHEN 650MG/20.3ML UDC GT PRN ×2 (08:35→17:53)
[2022-01-18] MEDS: MULTIVITAMINS,THER W-MINERALS TABLET GT SCH (08:35)
[2022-01-18] MEDS: VANCOMYCIN 750MG PREMIX 150 ML IV SCH ×2 (08:35→21:26)
[2022-01-18] MEDS: CEFEPIME 1,000 MG in DEXTROSE 5% WATER 50 ML IV SCH ×2 (09:00→20:11)
[2022-01-18] MEDS ORDERED: NALOXONE HCL 0.4MG/ML VIAL IV PRN (09:30)
[2022-01-18] MEDS ORDERED: HYDROCODONE/ACETAMINOPHEN 5/325MG TABLET PO PRN (09:30)
[2022-01-18 12:00] VITALS: BP 108/78
[2022-01-18 16:00] VITALS: BP 104/73
[2022-01-18 20:00] VITALS: BP 114/81
[2022-01-18] MEDS: ENOXAPARIN 40MG/0.4ML SYR SUBCUT SCH (20:11)
[2022-01-19] VITALS: BP 108/77
[2022-01-19 04:00] VITALS: BP 125/76
[2022-01-19 08:00] VITALS: BP 102/72
[2022-01-19] MEDS: VANCOMYCIN 750MG PREMIX 150 ML IV SCH ×2 (08:02→22:00)
[2022-01-19] MEDS: CEFEPIME 1,000 MG in DEXTROSE 5% WATER 50 ML IV SCH ×2 (08:02→22:00)
[2022-01-19] MEDS: MULTIVITAMINS,THER W-MINERALS TABLET GT SCH (08:03)
[2022-01-19 12:00] VITALS: BP 115/75
[2022-01-19 16:00] VITALS: BP 117/77
[2022-01-19] MEDS: ACETAMINOPHEN 650MG/20.3ML UDC GT PRN (16:03)
[2022-01-19 18:44] LABS: INR 1.1; PROTHROMBIN TIME 11.8 sec (9.6-11.0)
[2022-01-19 20:00] VITALS: BP 116/76
[2022-01-19] MEDS: ENOXAPARIN 40MG/0.4ML SYR SUBCUT SCH (22:01)
[2022-01-20] VITALS: BP 115/82
[2022-01-20 04:00] VITALS: BP 106/67
[2022-01-20 08:29] VITALS: BP 124/70
[2022-01-20] MEDS: MULTIVITAMINS,THER W-MINERALS TABLET GT SCH (08:52)
[2022-01-20] MEDS: CEFEPIME 1,000 MG in DEXTROSE 5% WATER 50 ML IV SCH (08:53)
[2022-01-20] MEDS ORDERED: LIDOCAINE HCL 1% 10 MG/ML 10ML VIAL ONE (10:32)
[2022-01-20 12:10] VITALS: BP 110/64
[2022-01-20] MEDS: VANCOMYCIN 750MG PREMIX 150 ML IV SCH (12:31)
[2022-01-20] MEDS: ACETAMINOPHEN 650MG/20.3ML UDC GT PRN (12:43)
[2022-01-20 16:04] LABS: CHLORIDE 103 mEq/L (98-107)
[2022-01-20 16:08] VITALS: BP 113/77
[2022-01-20 18:59] VITALS: BP 114/76
== END 2022-01-20 21:08 | DRG 720 ==
LOC: ER 22:39 → EDBEDREQDT 01-06 02:24 → EDBEDREQTM 01-06 02:24 → EDBEDREQ 01-06 02:24 → EDBEDREQSVC 01-06 02:24 → MICUSO 01-06 03:44 → 7WST 01-06 09:29 → 7EST 01-06 18:17
PROVIDERS: ADMIT Family Medicine Adult Medicine; ATTEND Family Medicine Adult Medicine
PROC: 02HV33Z Insertion of Infusion Device into Superior Vena Cava, Percutaneous Approach (ICD-10-PCS; principal; 2022-01-20)
PROC: B5181ZA Fluoroscopy of Superior Vena Cava using Low Osmolar Contrast, Guidance (ICD-10-PCS; 2022-01-20)
PROC: B548ZZA Ultrasonography of Superior Vena Cava, Guidance (ICD-10-PCS; 2022-01-20)
DX: A41.89 Other specified sepsis (principal); G82.50 Quadriplegia, unspecified; U07.1 COVID-19; L89.154 Pressure ulcer of sacral region, stage 4; E44.0 Moderate protein-calorie malnutrition; I13.0 Hypertensive heart and chronic kidney disease with heart failure and stage 1 through stage 4 chronic kidney disease, or unspecified chronic kidney disease; I50.9 Heart failure, unspecified; E11.22 Type 2 diabetes mellitus with diabetic chronic kidney disease; G35 Multiple sclerosis; E78.5 Hyperlipidemia, unspecified; N31.9 Neuromuscular dysfunction of bladder, unspecified; J44.9 Chronic obstructive pulmonary disease, unspecified; N18.9 Chronic kidney disease, unspecified; D63.1 Anemia in chronic kidney disease; R13.10 Dysphagia, unspecified; Z74.01 Bed confinement status; Z78.9 Other specified health status; Z87.440 Personal history of urinary (tract) infections; Z93.1 Gastrostomy status; Z79.899 Other long term (current) drug therapy; Z86.73 Personal history of transient ischemic attack (TIA), and cerebral infarction without residual deficits; Z68.23 Body mass index [BMI] 23.0-23.9, adult; Z82.49 Family history of ischemic heart disease and other diseases of the circulatory system
CPT/HCPCS: 36415; 36573; 71045; 74176; 80048; 80053; 80202; 81003; 82040; 82550; 82962; 83605; 84134; 84145; 84484; 85025; 85651; 87426; 87804; 93005; 93970; 99285; A6261; C1725; C1893; J0692; J1650; J2270; J2543; J3370; J3490; J7030; J7060

== ENCOUNTER 2022-02-02 01:30 | Inpatient (IN) | payer MEDICAID ==
[2022-02-01] MEDS: SODIUM CHLORIDE 0.9% INJ 3ML FLUSH IVF SCH (22:00)
[~2022-02-02] VITALS: Ht 162.6 cm; Wt 27.2 kg
[~2022-02-02 01:30] MED LIST changes: -ERTA1VIA3 IJ; -METO25TA6 GT; -MIDO5TAB4 MT; +POLY17PO3 MT; +SIME40DR70 PO; -[UNRECOGNIZED DRUG - CODE] IV
[2022-02-02] MEDS ORDERED: IBUPROFEN 600MG TABLET PO STA (01:41)
[2022-02-02] MEDS ORDERED: DEXAMETHASONE 10 MG/ML VIAL IV ONE (01:45)
[2022-02-02] MEDS ORDERED: IBUPROFEN 100MG/5ML UDC GT ONE (02:00)
[2022-02-02 02:23] LABS: HEMOGLOBIN. 9.1 g/dL (14.0-18.0); MEAN CORPUSCULAR HEMOGLOBIN 25.7 pg (28.0-32.0); MEAN CORPUSCULAR VOLUME 76.3 fL (80.0-94.0); MEAN PLATELET VOLUME 9.7 fl (7.4-10.4); PLATELET 217 x1000/uL (130-400); RED BLOOD CELL COUNT 3.54 mill/uL (4.7-6.1); RED CELL DISTRIBUTION WIDTH 17.3 % (11.6-14.6)
[2022-02-02] MEDS ORDERED: CEFTRIAXONE 1 G PREMIX 50 ML IV ONE (02:30)
[2022-02-02] MEDS ORDERED: AZITHROMYCIN 500 MG in DEXT 5% WATER 250 ML IV SCH (02:30)
[2022-02-02 02:31] LABS: CHLORIDE 102 mEq/L (98-107)
[2022-02-02] MEDS ORDERED: CLONIDINE 0.1MG TABLET PO PRN (03:45)
[2022-02-02] MEDS ORDERED: ACETAMINOPHEN 325MG TABLET PO PRN (03:45)
[2022-02-02] MEDS ORDERED: CEFTRIAXONE 1 G PREMIX 50 ML IV SCH (04:00)
[2022-02-02 04:14] LABS: PLATELET ESTIMATE NORMAL
[2022-02-02] MEDS ORDERED: POTASSIUM CHLORIDE 20MEQ/PACKET GT NR (05:00)
[2022-02-02] MEDS ORDERED: CEFEPIME 2,000 MG in DEXT 5% WATER 100 ML IV SCH (05:30)
[2022-02-02 05:33] LABS: D-DIMER 1.27 mg/L FEU (<0.50); INR 1.2; PROTHROMBIN TIME 12.4 sec (9.6-11.0)
[2022-02-02] MEDS ORDERED: DAPTOMYCIN 500 MG in SODIUM CHLORIDE 0.9% 50 ML IV SCH (06:00)
[2022-02-02] MEDS: SODIUM CHLORIDE 0.9% INJ 3ML FLUSH IVF SCH ×2 (06:44→14:09)
[2022-02-02] MEDS ORDERED: ACETAMINOPHEN 650MG/20.3ML UDC GT PRN (07:45)
[2022-02-02] MEDS ORDERED: ERGOCALCIFEROL 50000UNITS CAPSULE PO SCH (10:00)
[2022-02-02 10:58] LABS: CREATINE KINASE 123 IU/L (39-308)
[2022-02-02] MEDS: ACETAMINOPHEN 650MG/20.3ML UDC GT PRN (13:47)
[2022-02-02 17:49] VITALS: BP 104/66
[2022-02-02 20:00] VITALS: BP 104/73
[2022-02-03] VITALS: BP 91/50
[2022-02-03] MEDS: ACETYLCYSTEINE 100MG/ML 10% VIAL 4ML INH SCH (02:10)
[2022-02-03] MEDS: IPRATROPIUM BROMIDE (0.02%) 0.5MG/2.5ML NEB HHN SCH ×2 (02:10→21:10)
[2022-02-03] MEDS: CEFEPIME 2,000 MG in DEXT 5% WATER 100 ML IV SCH ×2 (03:21→18:19)
[2022-02-03 04:00] VITALS: BP 104/71
[2022-02-03] MEDS ORDERED: AZITHROMYCIN 500 MG in DEXT 5% WATER 250 ML IV SCH (05:00)
[2022-02-03] MEDS ORDERED: CEFTRIAXONE 1,000 MG in DEXTROSE 5% WATER 50 ML IV SCH (06:00)
[2022-02-03] MEDS: SODIUM CHLORIDE 0.9% INJ 3ML FLUSH IVF SCH ×3 (06:10→21:19)
[2022-02-03] MEDS: DAPTOMYCIN 500 MG in SODIUM CHLORIDE 0.9% 50 ML IV SCH (06:10)
[2022-02-03 12:00] VITALS: BP 115/72
[2022-02-03] MEDS: ACETAMINOPHEN 650MG/20.3ML UDC GT PRN (14:36)
[2022-02-03] MEDS: SODIUM HYPOCHLORITE 0.125% 473ML SOLUTION TOP SCH (14:36)
[2022-02-03] MEDS ORDERED: IPRATROPIUM BROMIDE (0.02%) 0.5MG/2.5ML NEB HHN PRN (14:45)
[2022-02-03 16:00] VITALS: BP 107/71
[2022-02-03] MEDS: LACTOBACILLUS GG CAPSULE PO SCH (18:21)
[2022-02-03 20:00] VITALS: BP 117/67
[2022-02-04] VITALS: BP 113/73
[2022-02-04 04:00] VITALS: BP 128/71
[2022-02-04] MEDS: CEFEPIME 2,000 MG in DEXT 5% WATER 100 ML IV SCH ×2 (05:24→17:26)
[2022-02-04] MEDS: DAPTOMYCIN 500 MG in SODIUM CHLORIDE 0.9% 50 ML IV SCH (06:21)
[2022-02-04] MEDS: SODIUM CHLORIDE 0.9% INJ 3ML FLUSH IVF SCH ×3 (06:21→20:37)
[2022-02-04 08:00] VITALS: BP 105/72
[2022-02-04] MEDS: ACETYLCYSTEINE 100MG/ML 10% VIAL 4ML INH SCH ×2 (09:05→14:39)
[2022-02-04] MEDS: IPRATROPIUM BROMIDE (0.02%) 0.5MG/2.5ML NEB HHN SCH ×3 (09:06→21:44)
[2022-02-04] MEDS: SODIUM HYPOCHLORITE 0.125% 473ML SOLUTION TOP SCH (09:42)
[2022-02-04] MEDS: LACTOBACILLUS GG CAPSULE PO SCH ×2 (09:42→17:26)
[2022-02-04 12:00] VITALS: BP 116/82
[2022-02-04 16:00] VITALS: BP 106/62
[2022-02-04 20:00] VITALS: BP 118/68
[2022-02-05 00:05] VITALS: BP 105/68
[2022-02-05] MEDS: IPRATROPIUM BROMIDE (0.02%) 0.5MG/2.5ML NEB HHN SCH ×4 (02:34→21:31)
[2022-02-05] MEDS: ACETYLCYSTEINE 100MG/ML 10% VIAL 4ML INH SCH ×3 (02:34→13:43)
[2022-02-05 04:00] VITALS: BP 111/71
[2022-02-05] MEDS: DAPTOMYCIN 500 MG in SODIUM CHLORIDE 0.9% 50 ML IV SCH (05:24)
[2022-02-05] MEDS: SODIUM CHLORIDE 0.9% INJ 3ML FLUSH IVF SCH ×3 (05:24→21:35)
[2022-02-05] MEDS: CEFEPIME 2,000 MG in DEXT 5% WATER 100 ML IV SCH ×2 (05:37→18:13)
[2022-02-05 08:00] VITALS: BP 136/78
[2022-02-05] MEDS: LACTOBACILLUS GG CAPSULE PO SCH ×2 (08:57→18:12)
[2022-02-05] MEDS: SODIUM HYPOCHLORITE 0.125% 473ML SOLUTION TOP SCH (08:57)
[2022-02-05 12:00] VITALS: BP 129/77
[2022-02-05 16:00] VITALS: BP 103/64
[2022-02-05 20:00] VITALS: BP 124/63
[2022-02-06] VITALS: BP 108/75
[2022-02-06] MEDS: ACETYLCYSTEINE 100MG/ML 10% VIAL 4ML INH SCH ×3 (02:07→15:31)
[2022-02-06] MEDS: IPRATROPIUM BROMIDE (0.02%) 0.5MG/2.5ML NEB HHN SCH ×4 (02:09→21:22)
[2022-02-06 03:52] LABS: BG BASE EXCESS 2.3 mmol/L (-2.0-2.0); BG CARBOXYHEMOGLOBIN 0.4 % (0.5-1.5); BG DEOXYHEMOGLOBIN 4.1 % (0.0-5.0); BG FRACTION INSPIRED OXYGEN 21; BG HCO3 ACT 25.5 mmol/L (22.0-26.0); BG METHEMOGLOBIN 0.3 % (0.0-1.5); BG OXYGEN SATURATION 95.9 % (92.0-98.5); BG OXYHEMOGLOBIN 95.2 % (94.0-97.0); BG PH 7.493 (7.350-7.450); BG PO2 81.3 mmHg (75.0-100.0); BG SAMPLE SITE LEFT BRACHIAL; BG TOTAL HEMOGLOBIN 9.5 g/dL (12.0-18.0); BG VENT MODE ROOM AIR
[2022-02-06 04:00] VITALS: BP 109/67
[2022-02-06] MEDS: CEFEPIME 2,000 MG in DEXT 5% WATER 100 ML IV SCH ×2 (06:25→17:03)
[2022-02-06] MEDS: SODIUM CHLORIDE 0.9% INJ 3ML FLUSH IVF SCH ×3 (06:25→21:07)
[2022-02-06 08:00] VITALS: BP 100/68
[2022-02-06] MEDS: DAPTOMYCIN 500 MG in SODIUM CHLORIDE 0.9% 50 ML IV SCH (09:49)
[2022-02-06] MEDS: LACTOBACILLUS GG CAPSULE PO SCH ×2 (09:49→16:53)
[2022-02-06] MEDS: SODIUM HYPOCHLORITE 0.125% 473ML SOLUTION TOP SCH (09:50)
[2022-02-06 12:00] VITALS: BP 119/78
[2022-02-06 16:00] VITALS: BP 113/71
[2022-02-06] MEDS: ACETAMINOPHEN 650MG/20.3ML UDC GT PRN (16:57)
[2022-02-06 20:00] VITALS: BP 106/56
[2022-02-07] VITALS: BP 107/73
[2022-02-07] MEDS: IPRATROPIUM BROMIDE (0.02%) 0.5MG/2.5ML NEB HHN SCH ×4 (01:08→21:06)
[2022-02-07] MEDS: ACETYLCYSTEINE 100MG/ML 10% VIAL 4ML INH SCH ×3 (01:08→14:42)
[2022-02-07 04:00] VITALS: BP 116/71
[2022-02-07] MEDS: CEFEPIME 2,000 MG in DEXT 5% WATER 100 ML IV SCH ×2 (05:27→17:36)
[2022-02-07] MEDS: SODIUM CHLORIDE 0.9% INJ 3ML FLUSH IVF SCH ×3 (05:28→21:20)
[2022-02-07] MEDS: DAPTOMYCIN 500 MG in SODIUM CHLORIDE 0.9% 50 ML IV SCH (06:05)
[2022-02-07 08:00] VITALS: BP 107/72
[2022-02-07] MEDS: SODIUM CHLORIDE 3% FOR INH 4ML UD NEB INH SCH ×2 (09:43→21:06)
[2022-02-07] MEDS: LACTOBACILLUS GG CAPSULE PO SCH ×2 (09:52→17:36)
[2022-02-07] MEDS: SODIUM HYPOCHLORITE 0.125% 473ML SOLUTION TOP SCH (09:52)
[2022-02-07 12:00] VITALS: BP 104/70
[2022-02-07 16:00] VITALS: BP 106/69
[2022-02-07 20:00] VITALS: BP 112/68
[2022-02-07 21:31] LABS: BASOPHILS % 0.3 % (0.0-2.0); EOSINOPHILS % 1.8 % (0.0-5.0); HEMATOCRIT. 27.3 % (42.0-52.0); HEMOGLOBIN. 9.1 g/dL (14.0-18.0); LYMPHOCYTES % 7.9 % (20.0-50.0); MEAN CORPUSCULAR HEMOGLOBIN 25.3 pg (28.0-32.0); MEAN CORPUSCULAR VOLUME 75.6 fL (80.0-94.0); MEAN PLATELET VOLUME 8.9 fl (7.4-10.4); MONOCYTES % 10.6 % (2.0-8.0); NEUTROPHILS % 79.4 % (40.0-76.0); PLATELET 413 x1000/uL (130-400); RED BLOOD CELL COUNT 3.62 mill/uL (4.7-6.1)
[2022-02-08] VITALS (7 sets, daily range): BP systolic 100–119; BP diastolic 67–82
[2022-02-08] MEDS: ACETYLCYSTEINE 100MG/ML 10% VIAL 4ML INH SCH ×2 (01:23→09:16)
[2022-02-08] MEDS: IPRATROPIUM BROMIDE (0.02%) 0.5MG/2.5ML NEB HHN SCH ×4 (01:23→21:23)
[2022-02-08] MEDS: CEFEPIME 2,000 MG in DEXT 5% WATER 100 ML IV SCH ×2 (06:54→17:13)
[2022-02-08] MEDS: SODIUM CHLORIDE 0.9% INJ 3ML FLUSH IVF SCH ×3 (06:55→21:01)
[2022-02-08] MEDS: SODIUM HYPOCHLORITE 0.125% 473ML SOLUTION TOP SCH (09:05)
[2022-02-08] MEDS: DAPTOMYCIN 500 MG in SODIUM CHLORIDE 0.9% 50 ML IV SCH (09:05)
[2022-02-08] MEDS: LACTOBACILLUS GG CAPSULE PO SCH ×2 (09:05→17:13)
[2022-02-09] VITALS: BP 108/72
[2022-02-09] MEDS: IPRATROPIUM BROMIDE (0.02%) 0.5MG/2.5ML NEB HHN SCH ×2 (01:04→08:55)
[2022-02-09 04:00] VITALS: BP 103/62
[2022-02-09] MEDS: CEFEPIME 2,000 MG in DEXT 5% WATER 100 ML IV SCH (05:13)
[2022-02-09] MEDS: SODIUM CHLORIDE 0.9% INJ 3ML FLUSH IVF SCH ×2 (05:13→13:26)
[2022-02-09] MEDS: DAPTOMYCIN 500 MG in SODIUM CHLORIDE 0.9% 50 ML IV SCH (06:03)
[2022-02-09 08:00] VITALS: BP 96/54
[2022-02-09] MEDS: LACTOBACILLUS GG CAPSULE PO SCH (10:05)
[2022-02-09] MEDS: SODIUM HYPOCHLORITE 0.125% 473ML SOLUTION TOP SCH (10:05)
[2022-02-09 12:00] VITALS: BP 99/55
[2022-02-09] MEDS ORDERED: ERGOCALCIFEROL 8000UNITS/ML 60ML GT SCH (12:00)
[2022-02-09 13:45] VITALS: BP 96/54
== END 2022-02-09 15:30 | DRG 720 ==
LOC: ER 01:42 → MICUSO 02:40 → 7WST 17:31
PROVIDERS: ADMIT Internal Medicine; ATTEND Internal Medicine
DX: A41.9 Sepsis, unspecified organism (principal); J96.00 Acute respiratory failure, unspecified whether with hypoxia or hypercapnia; G93.40 Encephalopathy, unspecified; L89.154 Pressure ulcer of sacral region, stage 4; E43 Unspecified severe protein-calorie malnutrition; J18.9 Pneumonia, unspecified organism; J44.0 Chronic obstructive pulmonary disease with (acute) lower respiratory infection; Z20.822 Contact with and (suspected) exposure to COVID-19; G35 Multiple sclerosis; J44.9 Chronic obstructive pulmonary disease, unspecified; K21.9 Gastro-esophageal reflux disease without esophagitis; E78.5 Hyperlipidemia, unspecified; M86.60 Other chronic osteomyelitis, unspecified site; F32.A Depression, unspecified; Z86.16 Personal history of COVID-19; Z68.1 Body mass index [BMI] 19.9 or less, adult; Z93.1 Gastrostomy status; Z79.899 Other long term (current) drug therapy; Z74.01 Bed confinement status; Z82.49 Family history of ischemic heart disease and other diseases of the circulatory system
CPT/HCPCS: 36415; 36600; 71045; 78580; 80053; 82040; 82375; 82550; 82805; 82962; 83605; 83615; 83880; 84134; 84145; 84484; 85025; 85379; 85384; 87426; 87804; 94640; 99285; A6261; J0456; J0692; J0878; J1100; J7060; J7608; A4315

== ENCOUNTER 2023-06-17 15:56 | Emergency (ER) | payer MEDICAID ==
[~2023-06-17] VITALS: Ht 172.7 cm; Wt 46.0 kg
[~2023-06-17 15:56] MED LIST changes: -ALBU05 NEB; -ASCO500C15 PO; +ATOR10TA69 PO; -DOCU250C14 GT; -ENOX40SY27 SQ; -FAMO20TA8 MT; -FE300LUD MT; -GABA-533 MT; +HYDR-4001 GT; +LEVO750T68 MT; -MULT-230 MT; +PANT40SU GT; -POLY17PO3 MT; -SIME40DR70 PO; -TOPUD GT; -TRAZ-251 MT; -ZINC220T4 MT
[2023-06-17 16:09] VITALS: O2SAT 99
[2023-06-17 17:07] LABS: BASOPHILS % 0.4 % (0.0-2.0); DIFFERENTIAL COMMENT 0; EOSINOPHILS % 0.9 % (0.0-5.0); HEMATOCRIT. 33.8 % (42.0-52.0); HEMOGLOBIN. 11.6 g/dL (14.0-18.0); LYMPHOCYTES % 14.1 % (20.0-50.0); MEAN CORPUSCULAR HEMOGLOBIN 26.5 pg (28.0-32.0); MEAN CORPUSCULAR HGB CONC 34.2 g/dL (31.0-37.0); MEAN CORPUSCULAR VOLUME 77.7 fL (80.0-94.0); MEAN PLATELET VOLUME 9.4 fl (7.4-10.4); MONOCYTES % 7.1 % (2.0-8.0); NEUTROPHILS % 77.5 % (40.0-76.0); PLATELET 234 x1000/uL (130-400); RED BLOOD CELL COUNT 4.35 mill/uL (4.7-6.1); WHITE BLOOD COUNT 9.1 x1000/uL (4.5-11.0)
[2023-06-17] MEDS: SODIUM CHLORIDE 0.9% 1000ML BAG (SEPSIS BOLUS) IV ONE (17:08)
[2023-06-17] MEDS: CEFTRIAXONE 1GM/50ML 50 ML IV ONE (17:08)
[2023-06-17 17:13] LABS: CHLORIDE 107 mEq/L (98-107); POTASSIUM 4.5 mEq/L (3.5-5.1); SODIUM 138 mEq/L (136-145)
[2023-06-17 17:14] LABS: CALCIUM 9.6 mg/dL (8.7-10.4); CARBON DIOXIDE 25 mEq/L (21-32)
[2023-06-17 17:17] LABS: INR 1.1; PROTHROMBIN TIME 11.9 sec (9.6-11.0)
[2023-06-17 17:19] LABS: GLUCOSE 92 mg/dL (70-105); UREA NITROGEN BLOOD 22 mg/dL (9-23)
[2023-06-17 17:21] LABS: ALANINE AMINOTRANSFERASE 12 IU/L (10-49); ALBUMIN 3.9 g/dL (3.2-4.8); ASPARTATE AMINOTRANSFERASE 14 IU/L (<34); BILIRUBIN TOTAL 0.4 mg/dL (0.1-1.0); PROTEIN TOTAL 7.3 g/dL (6.0-8.3)
[2023-06-17 17:22] LABS: CREATININE 0.3 mg/dL (0.6-1.3)
[2023-06-17 18:00] VITALS: TEMP 97.8
[2023-06-18 01:41] VITALS: BP 110/74; PULSE 85; RESP 18
== END 2023-06-18 02:52 ==
LOC: ER 15:56 → EDBEDREQ 16:43 → ER 06-18 02:52
DX: R79.9 Abnormal finding of blood chemistry, unspecified (principal); J44.9 Chronic obstructive pulmonary disease, unspecified; E11.9 Type 2 diabetes mellitus without complications; K21.9 Gastro-esophageal reflux disease without esophagitis; I10 Essential (primary) hypertension; F20.9 Schizophrenia, unspecified; Z86.73 Personal history of transient ischemic attack (TIA), and cerebral infarction without residual deficits; Z20.822 Contact with and (suspected) exposure to COVID-19
CPT/HCPCS: 99285; 96365; 71045; 96366; 87426; 80053; 83605; 85025; 85610; 87040; 87804 ×2; 36415; 84145; 93005; J0696; J7030